=== PATIENT | female | born 1960 | race Caucasian/White ===

== ENCOUNTER 2018-07-05 20:56 | Inpatient (IN) ==
[2018-07-05] MEDS ORDERED: Sodium Chlor 0.9% Inj 500 ML IV.SIG ONE (22:18)
--- NOTE | 2018-07-05 22:18 | ED ---
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 Then she was referred to Dr. Stephen however she has insurance issues and cannot see Dr. Stephen. She comes in tonight return of heavy vaginal bleeding. She was worried she will become anemic again. And patient is here complaining of lethargy weakness heavy vaginal bleeding. She has a history of fibroids. She has heavy bleeding off and on throughout her life. She has never become perimenopausal yet she is 58 and again recently diagnosed with a liposarcoma and a lesion in the lung was biopsied that seemed like it was metastatic from the uterine cancer mild epigastric and suprapubic tenderness with heavy vaginal bleed as her main complaint getting worse over the last day Related Data Home Medications Medication Instructions Recorded Confirmed iron fum,ps-FA-vit B,C#18-Lact 1 cap PO DAILY 07/05/18 07/05/18 [Fusion Plus] Previous Rx's Medication Instructions Recorded metoprolol succinate 12.5 mg PO DAILY #30 tab 07/08/18 ondansetron [Zofran ODT] 4 mg PO QID PRN #20 tab 07/08/18 potassium chloride 20 meq PO DAILY #3 cap 07/08/18 tramadol [Ultram] 50 mg PO Q4-6H PRN #20 tab 07/08/18 Allergies Allergy/AdvReac Type Severity Reaction Status Date / Time No Known Allergies Allergy Verified 07/05/18 21:21 Review of Systems ROS: all other systems reviewed are negative [facility] Medical History Medical History Fibroids (Acute) Endometriosis (Acute) Asthma (Acute) 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) Surgical History Surgical History H/O dilation and curettage (Acute) Hx of tonsillectomy (Acute) Family History Family History Father Accident Mother Diabetes Hypertension Social History Social History Substance History: No History of Abuse Second Hand Smoke Exposure: No Smoking Status: Former smoker How Often Do You Have a Drink Containing Alcohol: Never Recent Travel in [place] within the Last 8 Weeks: No Recent Out of Country Travel within the Last 8 Weeks: No Immunization History Tetanus Immunization: Unsure Hx Influenza Vaccine This Season: No Exam Narrative Exam Narrative: GENERAL: slightly pale SKIN: Warm and dry. HEAD: Atraumatic. Normocephalic. EYES: Pupils equal and round. No scleral icterus. No injection or drainage. ENT: No nasal bleeding or discharge. Mucous membranes pink and moist. NECK: Trachea midline. No JVD. CARDIOVASCULAR: Regular rate and rhythm. RESPIRATORY: No accessory muscle use. Clear to auscultation. Breath sounds equal bilaterally. GASTROINTESTINAL: Abdomen soft, non-tender, nondistended. Hepatic and splenic margins not palpable. MUSCULOSKELETAL: Extremities without clubbing, cyanosis, or edema. No obvious deformities. NEUROLOGICAL: Awake and alert. No obvious cranial nerve deficits. Motor grossly within normal limits. Five out of 5 muscle strength in the arms and legs. Normal speech. PSYCHIATRIC: Appropriate mood and affect; insight and judgment normal. Course Initial Documented Vital Signs Temperature 98.3 F 07/05/18 21:21 Pulse Rate 110 H 07/05/18 21:21 Respiratory Rate 18 07/05/18 21:21 Blood Pressure 170/93 H 07/05/18 21:21 Pulse Oximetry 98 07/05/18 21:21 Last Documented Vital Signs Temperature 98.1 F 07/08/18 08:44 Pulse Rate 81 07/08/18 11:17 Respiratory Rate 18 07/08/18 08:44 Blood Pressure 163/72 H 07/08/18 11:17 Pulse Oximetry 95 07/08/18 08:44 Medical Decision Making [facility] Narrative Medical decision making narrative: Patient is admitted for further evaluation I do an ultrasound in the ER to have some documentation in our system as they do not have any films with them from prior treatment patient will be seen by a oncologist and gynecologic at this time she is stable admitted for further evaluation possible hysterectomy she has no way to follow-up as an outpatient with a long will be followed by regular oncology due to the fact that she has a possible metastases of this liposarcoma to her lung Medical Screen Exam Complete: Yes Emergency Medical Condition: Yes Differential Diagnosis Differential Diagnosis: Differential diagnosis includes worsening of her leiomyosarcoma heavy vaginal bleeding versus fibroid bleeding versus external uterine bleeding versus worsening of her present illness Lab Data Result diagrams: 07/08/18 05:04 07/08/18 05:04 Lab Results 07/05/18 07/05/18 07/05/18 Range/Units 22:57 22:57 23:35 WBC 7.4 (4.0-11.0) th/mm3 RBC 4.10 (4.00-5.30) mil/mm3 Hgb 10.3 L (11.6-15.3) gm/dL Hct 32.9 L (35.0-46.0) % MCV 80.3 (80.0-100.0) fL MCH 25.2 L (27.0-34.0) pg MCHC 31.3 L (32.0-36.0) % RDW 17.5 H (11.6-17.2) % Plt Count 413 (150-450) th/mm3 MPV 9.1 (7.0-11.0) fL Neut % (Auto) 75.2 H (16.0-70.0) % Lymph % (Auto) 15.3 (9.0-44.0) % [place] % (Auto) 6.1 (0.0-8.0) % Eos % (Auto) 2.3 (0.0-4.0) % Baso % (Auto) 1.1 (0.0-2.0) % Neut # (Auto) 5.5 (1.8-7.7) th/mm3 Lymph # (Auto) 1.1 (1.0-4.8) th/mm3 [place] # (Auto) 0.5 (0.0-0.9) th/mm3 Eos # (Auto) 0.2 (0.0-0.4) th/mm3 Baso # (Auto) 0.1 (0.0-0.2) th/mm3 WBC Differential . Differential Comment Auto diff final PT (9.8-11.6) sec INR Ratio Sodium 141 (136-145) meq/L Potassium 3.8 (3.5-5.1) meq/L Chloride 106 (98-107) meq/L Carbon Dioxide 27.0 (21.0-32.0) meq/L Anion Gap 8 (5-15) meq/L BUN 9 (7-18) mg/dL Creatinine 0.71 (0.50-1.00) mg/dL Estimated GFR 85 L (>89) mL/min Random Glucose 111 H (74-106) mg/dL Hemoglobin A1c (4.3-6.0) % Calcium 9.4 (8.5-10.1) mg/dL Phosphorus (2.5-4.9) mg/dL Magnesium (1.5-2.5) mg/dL Total Bilirubin 0.3 (0.2-1.0) mg/dL AST 23 (15-37) U/L ALT 32 (10-53) U/L Alkaline Phosphatase 107 (45-117) U/L Total Protein 7.2 (6.4-8.2) g/dL Albumin 3.9 (3.4-5.0) g/dL TSH (0.358-3.740) uIU/mL Free T4 (0.76-1.46) ng/dL Urine Color Yellow (Yellw/Straw) Urine Clarity Hazy H (Clear) Urine pH 5.0 (5.0-8.5) Ur Specific [place] 1.008 (1.002-1.035) Urine Protein Negative (Neg-Trace) mg/dL Urine Glucose (UA) Negative (Negative) mg/dL Urine Ketones Negative (Negative) mg/dL Urine Occult Blood Large H (Negative) Urine Nitrate Negative (Negative) Urine Bilirubin Negative (Negative) Urine Urobilinogen Less than 2 (Less than 2) mg/dL Ur Leukocyte Esterase Negative (Negative) Urine RBC (0-3) /hpf Urine WBC 4 (0-5) /hpf Urine Mucus Few H (Occasional) /lpf Ur Microscopic Review Not Reportable Blood Type Blood Type Recheck Antibody Screen MTS Gel Crossmatch Bld Prod Order Comment 07/05/18 07/05/18 07/06/18 Range/Units 23:40 23:40 04:15 WBC 5.5 (4.0-11.0) th/mm3 RBC 3.35 L (4.00-5.30) mil/mm3 Hgb 8.5 L (11.6-15.3) gm/dL Hct 27.1 L (35.0-46.0) % MCV 81.0 (80.0-100.0) fL MCH 25.2 L (27.0-34.0) pg MCHC 31.2 L (32.0-36.0) % RDW 17.4 H (11.6-17.2) % Plt Count 361 (150-450) th/mm3 MPV 8.8 (7.0-11.0) fL Neut % (Auto) 75.1 H (16.0-70.0) % Lymph % (Auto) 17.3 (9.0-44.0) % [place] % (Auto) 5.7 (0.0-8.0) % Eos % (Auto) 0.9 (0.0-4.0) % Baso % (Auto) 1.0 (0.0-2.0) % Neut # (Auto) 4.2 (1.8-7.7) th/mm3 Lymph # (Auto) 1.0 (1.0-4.8) th/mm3 [place] # (Auto) 0.3 (0.0-0.9) th/mm3 Eos # (Auto) 0.0 (0.0-0.4) th/mm3 Baso # (Auto) 0.1 (0.0-0.2) th/mm3 WBC Differential . Differential Comment Auto diff final PT 12.5 H (9.8-11.6) sec INR 1.2 Ratio Sodium (136-145) meq/L Potassium (3.5-5.1) meq/L Chloride (98-107) meq/L Carbon Dioxide (21.0-32.0) meq/L Anion Gap (5-15) meq/L BUN (7-18) mg/dL Creatinine (0.50-1.00) mg/dL Estimated GFR (>89) mL/min Random Glucose (74-106) mg/dL Hemoglobin A1c (4.3-6.0) % Calcium (8.5-10.1) mg/dL Phosphorus (2.5-4.9) mg/dL Magnesium (1.5-2.5) mg/dL Total Bilirubin (0.2-1.0) mg/dL AST (15-37) U/L ALT (10-53) U/L Alkaline Phosphatase (45-117) U/L Total Protein (6.4-8.2) g/dL Albumin (3.4-5.0) g/dL TSH (0.358-3.740) uIU/mL Free T4 (0.76-1.46) ng/dL Urine Color (Yellw/Straw) Urine Clarity (Clear) Urine pH (5.0-8.5) Ur Specific [place] (1.002-1.035) Urine Protein (Neg-Trace) mg/dL Urine Glucose (UA) (Negative) mg/dL Urine Ketones (Negative) mg/dL Urine Occult Blood (Negative) Urine Nitrate (Negative) Urine Bilirubin (Negative) Urine Urobilinogen (Less than 2) mg/dL Ur Leukocyte Esterase (Negative) Urine RBC (0-3) /hpf Urine WBC (0-5) /hpf Urine Mucus (Occasional) /lpf Ur Microscopic Review Blood Type A Negative Blood Type Recheck Required Antibody Screen Negative MTS Gel Crossmatch Bld Prod Order Comment 07/06/18 07/06/18 07/06/18 Range/Units 04:15 04:15 04:15 WBC (4.0-11.0) th/mm3 RBC (4.00-5.30) mil/mm3 Hgb (11.6-15.3) gm/dL Hct (35.0-46.0) % MCV (80.0-100.0) fL MCH (27.0-34.0) pg MCHC (32.0-36.0) % RDW (11.6-17.2) % Plt Count (150-450) th/mm3 MPV (7.0-11.0) fL Neut % (Auto) (16.0-70.0) % Lymph % (Auto) (9.0-44.0) % [place] % (Auto) (0.0-8.0) % Eos % (Auto) (0.0-4.0) % Baso % (Auto) (0.0-2.0) % Neut # (Auto) (1.8-7.7) th/mm3 Lymph # (Auto) (1.0-4.8) th/mm3 [place] # (Auto) (0.0-0.9) th/mm3 Eos # (Auto) (0.0-0.4) th/mm3 Baso # (Auto) (0.0-0.2) th/mm3 WBC Differential Differential Comment PT (9.8-11.6) sec INR Ratio Sodium 143 (136-145) meq/L Potassium 3.8 (3.5-5.1) meq/L Chloride 109 H (98-107) meq/L Carbon Dioxide 25.8 (21.0-32.0) meq/L Anion Gap 8 (5-15) meq/L BUN 8 (7-18) mg/dL Creatinine 0.67 (0.50-1.00) mg/dL Estimated GFR Greater than 89 (>89) mL/min Random Glucose 116 H (74-106) mg/dL Hemoglobin A1c 4.4 (4.3-6.0) % Calcium 8.4 L D (8.5-10.1) mg/dL Phosphorus (2.5-4.9) mg/dL Magnesium (1.5-2.5) mg/dL Total Bilirubin 0.2 (0.2-1.0) mg/dL AST 18 (15-37) U/L ALT 28 (10-53) U/L Alkaline Phosphatase 92 (45-117) U/L Total Protein 6.1 L D (6.4-8.2) g/dL Albumin 3.3 L D (3.4-5.0) g/dL TSH (0.358-3.740) uIU/mL Free T4 1.08 (0.76-1.46) ng/dL Urine Color (Yellw/Straw) Urine Clarity (Clear) Urine pH (5.0-8.5) Ur Specific [place] (1.002-1.035) Urine Protein (Neg-Trace) mg/dL Urine Glucose (UA) (Negative) mg/dL Urine Ketones (Negative) mg/dL Urine Occult Blood (Negative) Urine Nitrate (Negative) Urine Bilirubin (Negative) Urine Urobilinogen (Less than 2) mg/dL Ur Leukocyte Esterase (Negative) Urine RBC (0-3) /hpf Urine WBC (0-5) /hpf Urine Mucus (Occasional) /lpf Ur Microscopic Review Blood Type Blood Type Recheck Antibody Screen MTS Gel Crossmatch Bld Prod Order Comment 07/06/18 07/06/18 07/07/18 Range/Units 04:15 23:11 05:06 WBC 5.5 (4.0-11.0) th/mm3 RBC 3.24 L (4.00-5.30) mil/mm3 Hgb 8.6 L 8.1 L (11.6-15.3) gm/dL Hct 26.2 L (35.0-46.0) % MCV 81.1 (80.0-100.0) fL MCH 25.0 L (27.0-34.0) pg MCHC 30.9 L (32.0-36.0) % RDW 17.7 H (11.6-17.2) % Plt Count 353 (150-450) th/mm3 MPV 8.2 (7.0-11.0) fL Neut % (Auto) 76.2 H (16.0-70.0) % Lymph % (Auto) 17.3 (9.0-44.0) % [place] % (Auto) 5.6 (0.0-8.0) % Eos % (Auto) 0.2 (0.0-4.0) % Baso % (Auto) 0.7 (0.0-2.0) % Neut # (Auto) 4.2 (1.8-7.7) th/mm3 Lymph # (Auto) 1.0 (1.0-4.8) th/mm3 [place] # (Auto) 0.3 (0.0-0.9) th/mm3 Eos # (Auto) 0.0 (0.0-0.4) th/mm3 Baso # (Auto) 0.0 (0.0-0.2) th/mm3 WBC Differential . Differential Comment Auto diff final PT (9.8-11.6) sec INR Ratio Sodium (136-145) meq/L Potassium (3.5-5.1) meq/L Chloride (98-107) meq/L Carbon Dioxide (21.0-32.0) meq/L Anion Gap (5-15) meq/L BUN (7-18) mg/dL Creatinine (0.50-1.00) mg/dL Estimated GFR (>89) mL/min Random Glucose (74-106) mg/dL Hemoglobin A1c (4.3-6.0) % Calcium (8.5-10.1) mg/dL Phosphorus (2.5-4.9) mg/dL Magnesium (1.5-2.5) mg/dL Total Bilirubin (0.2-1.0) mg/dL AST (15-37) U/L ALT (10-53) U/L Alkaline Phosphatase (45-117) U/L Total Protein (6.4-8.2) g/dL Albumin (3.4-5.0) g/dL TSH 1.270 (0.358-3.740) uIU/mL Free T4 (0.76-1.46) ng/dL Urine Color (Yellw/Straw) Urine Clarity (Clear) Urine pH (5.0-8.5) Ur Specific [place] (1.002-1.035) Urine Protein (Neg-Trace) mg/dL Urine Glucose (UA) (Negative) mg/dL Urine Ketones (Negative) mg/dL Urine Occult Blood (Negative) Urine Nitrate (Negative) Urine Bilirubin (Negative) Urine Urobilinogen (Less than 2) mg/dL Ur Leukocyte Esterase (Negative) Urine RBC (0-3) /hpf Urine WBC (0-5) /hpf Urine Mucus (Occasional) /lpf Ur Microscopic Review Blood Type Blood Type Recheck Antibody Screen MTS Gel Crossmatch Bld Prod Order Comment 07/07/18 07/07/18 07/07/18 Range/Units 05:06 05:06 15:06 WBC (4.0-11.0) th/mm3 RBC (4.00-5.30) mil/mm3 Hgb (11.6-15.3) gm/dL Hct (35.0-46.0) % MCV (80.0-100.0) fL MCH (27.0-34.0) pg MCHC (32.0-36.0) % RDW (11.6-17.2) % Plt Count (150-450) th/mm3 MPV (7.0-11.0) fL Neut % (Auto) (16.0-70.0) % Lymph % (Auto) (9.0-44.0) % [place] % (Auto) (0.0-8.0) % Eos % (Auto) (0.0-4.0) % Baso % (Auto) (0.0-2.0) % Neut # (Auto) (1.8-7.7) th/mm3 Lymph # (Auto) (1.0-4.8) th/mm3 [place] # (Auto) (0.0-0.9) th/mm3 Eos # (Auto) (0.0-0.4) th/mm3 Baso # (Auto) (0.0-0.2) th/mm3 WBC Differential Differential Comment PT 12.7 H (9.8-11.6) sec INR 1.3 Ratio Sodium 144 (136-145) meq/L Potassium 3.6 (3.5-5.1) meq/L Chloride 109 H (98-107) meq/L Carbon Dioxide 25.9 (21.0-32.0) meq/L Anion Gap 9 (5-15) meq/L BUN 4 L (7-18) mg/dL Creatinine 0.52 (0.50-1.00) mg/dL Estimated GFR Greater than 89 (>89) mL/min Random Glucose 100 (74-106) mg/dL Hemoglobin A1c (4.3-6.0) % Calcium 8.7 (8.5-10.1) mg/dL Phosphorus 4.4 (2.5-4.9) mg/dL Magnesium 2.1 (1.5-2.5) mg/dL Total Bilirubin 0.3 (0.2-1.0) mg/dL AST 17 (15-37) U/L ALT 23 (10-53) U/L Alkaline Phosphatase 89 (45-117) U/L Total Protein 6.4 (6.4-8.2) g/dL Albumin 3.4 (3.4-5.0) g/dL TSH (0.358-3.740) uIU/mL Free T4 (0.76-1.46) ng/dL Urine Color (Yellw/Straw) Urine Clarity (Clear) Urine pH (5.0-8.5) Ur Specific [place] (1.002-1.035) Urine Protein (Neg-Trace) mg/dL Urine Glucose (UA) (Negative) mg/dL Urine Ketones (Negative) mg/dL Urine Occult Blood (Negative) Urine Nitrate (Negative) Urine Bilirubin (Negative) Urine Urobilinogen (Less than 2) mg/dL Ur Leukocyte Esterase (Negative) Urine RBC (0-3) /hpf Urine WBC (0-5) /hpf Urine Mucus (Occasional) /lpf Ur Microscopic Review Blood Type Blood Type Recheck Antibody Screen MTS Gel Crossmatch See Detail Bld Prod Order Comment 07/08/18 07/08/18 07/08/18 Range/Units 05:04 05:04 05:04 WBC 8.9 D (4.0-11.0) th/mm3 RBC 3.86 L (4.00-5.30) mil/mm3 Hgb 10.4 L D (11.6-15.3) gm/dL Hct 32.0 L (35.0-46.0) % MCV 82.7 (80.0-100.0) fL MCH 26.9 L (27.0-34.0) pg MCHC 32.5 (32.0-36.0) % RDW 17.2 (11.6-17.2) % Plt Count 299 (150-450) th/mm3 MPV 8.9 (7.0-11.0) fL Neut % (Auto) 86.8 H (16.0-70.0) % Lymph % (Auto) 5.6 L (9.0-44.0) % [place] % (Auto) 6.8 (0.0-8.0) % Eos % (Auto) 0.4 (0.0-4.0) % Baso % (Auto) 0.4 (0.0-2.0) % Neut # (Auto) 7.8 H (1.8-7.7) th/mm3 Lymph # (Auto) 0.5 L (1.0-4.8) th/mm3 [place] # (Auto) 0.6 (0.0-0.9) th/mm3 Eos # (Auto) 0.0 (0.0-0.4) th/mm3 Baso # (Auto) 0.0 (0.0-0.2) th/mm3 WBC Differential . Differential Comment Auto diff final PT 13.6 H (9.8-11.6) sec INR 1.3 Ratio Sodium 142 (136-145) meq/L Potassium 3.1 L (3.5-5.1) meq/L Chloride 103 (98-107) meq/L Carbon Dioxide 27.2 (21.0-32.0) meq/L Anion Gap 12 (5-15) meq/L BUN 5 L (7-18) mg/dL Creatinine 0.59 (0.50-1.00) mg/dL Estimated GFR Greater than 89 (>89) mL/min Random Glucose 86 (74-106) mg/dL Hemoglobin A1c (4.3-6.0) % Calcium 8.2 L (8.5-10.1) mg/dL Phosphorus 3.7 (2.5-4.9) mg/dL Magnesium 2.0 (1.5-2.5) mg/dL Total Bilirubin 0.9 (0.2-1.0) mg/dL AST 29 (15-37) U/L ALT 20 (10-53) U/L Alkaline Phosphatase 82 (45-117) U/L Total Protein 6.3 L (6.4-8.2) g/dL Albumin 3.2 L (3.4-5.0) g/dL TSH (0.358-3.740) uIU/mL Free T4 (0.76-1.46) ng/dL Urine Color (Yellw/Straw) Urine Clarity (Clear) Urine pH (5.0-8.5) Ur Specific [place] (1.002-1.035) Urine Protein (Neg-Trace) mg/dL Urine Glucose (UA) (Negative) mg/dL Urine Ketones (Negative) mg/dL Urine Occult Blood (Negative) Urine Nitrate (Negative) Urine Bilirubin (Negative) Urine Urobilinogen (Less than 2) mg/dL Ur Leukocyte Esterase (Negative) Urine RBC (0-3) /hpf Urine WBC (0-5) /hpf Urine Mucus (Occasional) /lpf Ur Microscopic Review Blood Type Blood Type Recheck Antibody Screen MTS Gel Crossmatch Bld Prod Order Comment Imaging Data Radiologist's impression: Pelvis Ultrasound 07/05/18 22:12 CONCLUSION: 1. Large heterogeneous mass of the uterus as described with nonvisualization of the endometrial stripe. Fibroid and endometrial mass or both in the differential. 2. Neither ovary clearly visualized but no evidence of an adnexal mass. There is no free fluid. Patient refused transvaginal exam. Embolization 07/06/18 00:00 CONCLUSION: 1. Angiogram confirms a large hypervascular uterine mass with excellent angiographic result following particle embolization of the uterine arteries. Abdomen/Pelvis CT 07/07/18 00:00 CONCLUSION: 1. Markedly enlarged and heterogeneous uterus, with multiple discrete hyperdense regions, as detailed above. Findings are concerning for gynecologic malignancy. 2. Small region of low density in the left lateral pelvis, just lateral to the psoas muscle, which may represent focal layering fluid. 3. Mild nodularity of the left adrenal gland. 4. There is evidence of metastatic disease to the lungs. Please refer to separate report from today's chest CT for further details. Chest CT 07/07/18 00:00 CONCLUSION: 1. Multiple bilateral pulmonary nodules consistent with metastatic disease. Discharge Plan Discharge Disposition Patient Disposition: Discharge Home Discharge Condition Condition: Good Discharge Order Discharge Orders: Discharge Order (Routine); Ordered 07/08/18 Ordered By: Demetris Renteria Physicians Team ED Provider: Ramakrishna Santos ED Midlevel Provider: Catherine Garcia Primary Care Provider: Cyrus Kay Attending Provider: Demetris Renteria Other Providers: Toño Mesa Kelly Status ED Status: Left Department Discharge Information Discharge Date/Time: 07/06/18 01:03
[2018-07-05 23:18] LABS: Baso # (Auto) 0.1 th/mm3 (0.0-0.2); Baso % (Auto) 1.1 % (0.0-2.0); Eos # (Auto) 0.2 th/mm3 (0.0-0.4); Eos % (Auto) 2.3 % (0.0-4.0); Hematocrit 32.9 % (35.0-46.0); Hemoglobin 10.3 gm/dL (11.6-15.3); Lymph # (Auto) 1.1 th/mm3 (1.0-4.8); Lymph % (Auto) 15.3 % (9.0-44.0); Mean Corpuscular HGB Conc 31.3 % (32.0-36.0); Mean Corpuscular Hemoglobin 25.2 pg (27.0-34.0); Mean Corpuscular Volume 80.3 fL (80.0-100.0); Mean Platelet Volume 9.1 fL (7.0-11.0); Mono # (Auto) 0.5 th/mm3 (0.0-0.9); Mono % (Auto) 6.1 % (0.0-8.0); Neut # (Auto) 5.5 th/mm3 (1.8-7.7); Neut % (Auto) 75.2 % (16.0-70.0); Platelet Count 413 th/mm3 (150-450); Red Cell Distribution Width 17.5 % (11.6-17.2); White Blood Count 7.4 th/mm3 (4.0-11.0)
[2018-07-05 23:32] LABS: Alanine Aminotransferase 32 U/L (10-53); Albumin 3.9 g/dL (3.4-5.0); Anion Gap 8 meq/L (5-15); Aspartate Aminotransferase 23 U/L (15-37); Blood Urea Nitrogen 9 mg/dL (7-18); Calcium 9.4 mg/dL (8.5-10.1); Chloride 106 meq/L (98-107); Glomerular Filtration Rate 85 mL/min (>89); Glucose,Random 111 mg/dL (74-106); Potassium 3.8 meq/L (3.5-5.1); Sodium 141 meq/L (136-145)
[2018-07-05 23:35] LABS: Alkaline Phosphatase 107 U/L (45-117); Total Protein 7.2 g/dL (6.4-8.2)
[2018-07-05] MEDS ORDERED: Bisacodyl 10 MG Supp RECTAL PRN (23:36)
--- NOTE | 2018-07-06 00:03 | US ---
EXAM DATE: 07/05/2018 11:39 PM EDT AGE/SEX: 58 years / Female INDICATIONS: Vaginal bleeding. CLINICAL DATA: This is the patient's initial encounter. Patient reports that signs and symptoms have been present for 7 - 11 months and indicates a pain score of 2/10. MEDICAL/SURGICAL HISTORY: . Carcinoma in situ of cervix uteri. Endometriosis. Asthma. Anemia . . Dilation and curettage 06/13/2018. Tonsillectomy. COMPARISON: No prior exams available for comparison. MEASUREMENTS: Uterus:__20.1 x 12.3 x 13.5 cm Endometrial Stripe:__N/A Right Ovary:__ n/a Not visualized. Left Ovary:__ n/a Not visualized. FINDINGS: Uterus: 6.3 x 7.2 x 7.9 cm heterogeneous mass seen in the fundus, most likely a intramural/submucosa l fibroid but there is obscuration of the uterine cavity/endometrial stripe and an endometrial mass i s not excludable. Endometrial Stripe: Not visualized Right Ovary: Not visualized. Left Ovary: Not visualized. Fluid: No free fluid. Other: None. CONCLUSION: 1. Large heterogeneous mass of the uterus as described with nonvisualization of the endometrial stri pe. Fibroid and endometrial mass or both in the differential. 2. Neither ovary clearly visualized but no evidence of an adnexal mass. There is no free fluid. Serenity ent refused transvaginal exam. Electronically signed by: Anival Boo MD 07/06/2018 12:02 AM EDT
[2018-07-06 00:04] LABS: Bilirubin,Urine Negative (Negative); Color,Urine Yellow (Yellw/Straw); Glucose,Urine (UA) Negative (Negative); Leukocyte Esterase,Urine Negative (Negative); Mucus,Urine Few /lpf (Occasional); Nitrite,Urine Negative (Negative); Specific Gravity,Urine 1.008 (1.002-1.035)
[2018-07-06 00:05] LABS: Clarity,Urine Hazy (Clear)
[2018-07-06 00:06] LABS: INR 1.2 Ratio; Prothrombin Time 12.5 sec (9.8-11.6)
[2018-07-06] MEDS: Sod Chloride 0.9% Inj 1,000 ML IV.CONT SCH ×2 (00:33→09:58)
--- NOTE | 2018-07-06 01:30 | P.HPIM ---
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 Patient presents due to heavy vaginal bleeding which started earlier on with multiple clots. She says she is very scared of having anemia leg before. She reports chronic suprapubic cramping which is unchanged. She denies any fevers, chills, chest pain, shortness breath, nausea, vomiting. She does report uncertain amount of weight loss over the past 2 months. 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) - Surgical History Surgical History: Surgical History (Last Reviewed 07/05/18 @ 22:15 by Ramakrishna Santos) H/O dilation and curettage (Acute) Hx of tonsillectomy (Acute) - Family History Family History: Family History (Last Updated 07/06/18 @ 01:24 by Chele Bueno MD) Father Accident Mother Diabetes Hypertension - Tobacco History Second Hand Smoke Exposure: No Tobacco Use In Past 30 Days: No Smoking Status: Former smoker - Alcohol History How Often Do You Have a Drink Containing Alcohol: Never - Substance Use History Substance History: No History of Abuse - Immunization History Tetanus Immunization: Unsure Hx Influenza Vaccine This Season: No Medications and Allergies Active Medications: Active Medications Al Hydroxide/Mg Hydroxide (Milk Of Magnesia Liq) 30 ml PO Q12H PRN PRN Reason: Mild Constipation Bisacodyl (Dulcolax Supp) 10 mg RECTAL DAILY PRN PRN Reason: SEVERE CONSITIPATION Sodium Chloride (Ns Inj) 1,000 mls @ 100 mls/hr IV.CONT .Q10H CHRISTIE Last Admin: 07/06/18 00:33 Dose: 100 mls/hr Lactulose (Lactulose Liq) 30 ml PO DAILY PRN PRN Reason: SEVERE CONSITIPATION Sennosides (Senokot) 17.2 mg PO Q12H PRN PRN Reason: Moderate Constipation Allergies Allergy/AdvReac Type Severity Reaction Status Date / Time No Known Allergies Allergy Verified 07/05/18 21:21 Home Medications Medication Instructions Recorded Confirmed Type iron fum,ps-FA-vit B,C#18-Lact 1 cap PO DAILY 07/05/18 07/05/18 History [Fusion Plus] Exam Vital signs: Vital Signs 07/05/18 21:21 07/05/18 21:27 07/06/18 00:32 Temperature 98.3 F Pulse Rate 110 H 100 H 104 H Respiratory Rate 18 16 17 Blood Pressure 170/93 H 153/81 H 140/83 Pulse Oximetry 98 99 Intake & Output 07/05/18 07/05/18 07/06/18 06:59 18:59 06:59 Weight 77.111 kg Narrative: GENERAL: Patient sitting up in bed. She is alert and oriented 4. SKIN: Warm and dry. HEAD: Atraumatic. Normocephalic. EYES: Pupils equal and round. No scleral icterus. No injection or drainage. ENT: No nasal bleeding or discharge. Mucous membranes pink and moist. NECK: Trachea midline. No JVD. CARDIOVASCULAR: Regular rate and rhythm. RESPIRATORY: No accessory muscle use. Clear to auscultation. Breath sounds equal bilaterally. GASTROINTESTINAL: Abdomen soft, non-tender, nondistended. Hepatic and splenic margins not palpable. MUSCULOSKELETAL: Extremities without clubbing, cyanosis, or edema. No obvious deformities. NEUROLOGICAL: Awake and alert. No obvious cranial nerve deficits. Motor grossly within normal limits. Five out of 5 muscle strength in the arms and legs. Normal speech. PSYCHIATRIC: Appropriate mood and affect; insight and judgment normal. Results - Labs CBC & Chem 7: 07/05/18 22:57 07/05/18 22:57 Labs: Short CBC 07/05/18 Range/Units 22:57 WBC 7.4 (4.0-11.0) th/mm3 Hgb 10.3 L (11.6-15.3) gm/dL Hct 32.9 L (35.0-46.0) % Plt Count 413 (150-450) th/mm3 BMP 07/05/18 22:57 Sodium 141 Potassium 3.8 Chloride 106 Carbon Dioxide 27.0 BUN 9 Creatinine 0.71 Calcium 9.4 Liver Function 07/05/18 Range/Units 22:57 Total Bilirubin 0.3 (0.2-1.0) mg/dL AST 23 (15-37) U/L ALT 32 (10-53) U/L Alkaline Phosphatase 107 (45-117) U/L Albumin 3.9 (3.4-5.0) g/dL Urine 07/05/18 Range/Units 23:35 Urine Color Yellow (Yellw/Straw) Urine Clarity Hazy H (Clear) Urine pH 5.0 (5.0-8.5) Ur Specific [place] 1.008 (1.002-1.035) Urine Protein Negative (Neg-Trace) mg/dL Urine Glucose (UA) Negative (Negative) mg/dL - Imaging Impressions Pelvis Ultrasound 07/05/18 22:12 CONCLUSION: 1. Large heterogeneous mass of the uterus as described with nonvisualization of the endometrial stripe. Fibroid and endometrial mass or both in the differential. 2. Neither ovary clearly visualized but no evidence of an adnexal mass. There is no free fluid. Patient refused transvaginal exam. Caprini VTE Risk Assessment Caprini VTE Risk Assessment: Moderate/High Risk (score >= 2) VTE Pharmacological Exception Reason: Hemorrhage Caprini Risk Assessment Model: Point Value = 1 Point Value = 2 Point Value = 3 Point Value = 5 Age 41-60 Minor surgery BMI > 25 kg/m2 Swollen legs Varicose veins or History of unexplained or recurrent spontaneous Oral contraceptives or hormone replacement Sepsis (< 1 month) Serious lung disease, including pneumonia (< 1 month) Abnormal pulmonary function Acute myocardial infarction Congestive heart failure (< 1 month) History of inflammatory bowel disease Medical patient at bed rest Age 61-74 Arthroscopic surgery Major open surgery (> 45 min) Laparoscopic surgery (> 45 min) Malignancy Confined to bed (> 72 hours) Immobilizing plaster cast Central venous access Age >= 75 History of VTE Family history of VTE Factor V Leiden Prothrombin [id number] Lupus anticoagulant Anticardiolipin antibodies Elevated serum homocysteine Heparin-induced thrombocytopenia Other congenital or acquired thrombophilia Stroke (< 1 month) Elective arthroplasty Hip, pelvis, or leg fracture Acute spinal cord injury (< 1 month) Prophylaxis Regimen: Total Risk Factor Score Risk Level Prophylaxis Regimen 0-1 Low Early ambulation 2 Moderate Order ONE of the following: *Sequential Compression Device (SCD) *Heparin 5000 units SQ BID 3-4 Higher Order ONE of the following medications: *Heparin 5000 units SQ TID *Enoxaparin/Lovenox 40 mg SQ daily (WT < 150 kg, CrCl > 30 mL/min) *Enoxaparin/Lovenox 30 mg SQ daily (WT < 150 kg, CrCl > 10-29 mL/min) *Enoxaparin/Lovenox 30 mg SQ BID (WT < 150 kg, CrCl > 30 mL/min) AND/OR *Sequential Compression Device (SCD) 5 or more Highest Order ONE of the following medications: *Heparin 5000 units SQ TID (Preferred with Epidurals) *Enoxaparin/Lovenox 40 mg SQ daily (WT < 150 kg, CrCl > 30 mL/min) *Enoxaparin/Lovenox 30 mg SQ daily (WT < 150 kg, CrCl > 10-29 mL/min) *Enoxaparin/Lovenox 30 mg SQ BID (WT < 150 kg, CrCl > 30 mL/min) AND *Sequential Compression Device (SCD) Assessment and Plan - Plan //Acute vaginal bleeding //Anemia -Hemoglobin 10 Consult gynecology/oncology. Trend hemoglobin. 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 Recent biopsy on 06/22 at [facility]. Will consult gynecology/oncology. Discussed Condition With: Patient, nurse, ED physician, daughter at bedside H&P: Quality - VTE Deep Vein Thrombosis/Pulmonary Embolism Present on Admission: No
[2018-07-06 05:18] LABS: Baso # (Auto) 0.1 th/mm3 (0.0-0.2); Eos % (Auto) 0.9 % (0.0-4.0); Hematocrit 27.1 % (35.0-46.0); Hemoglobin 8.5 gm/dL (11.6-15.3); Lymph % (Auto) 17.3 % (9.0-44.0); Mean Corpuscular HGB Conc 31.2 % (32.0-36.0); Mean Corpuscular Hemoglobin 25.2 pg (27.0-34.0); Mean Platelet Volume 8.8 fL (7.0-11.0); Mono # (Auto) 0.3 th/mm3 (0.0-0.9); Mono % (Auto) 5.7 % (0.0-8.0); Neut # (Auto) 4.2 th/mm3 (1.8-7.7); Neut % (Auto) 75.1 % (16.0-70.0); Platelet Count 361 th/mm3 (150-450); Red Blood Count 3.35 mil/mm3 (4.00-5.30); Red Cell Distribution Width 17.4 % (11.6-17.2); White Blood Count 5.5 th/mm3 (4.0-11.0)
[2018-07-06 05:43] LABS: Alanine Aminotransferase 28 U/L (10-53); Albumin 3.3 g/dL (3.4-5.0); Alkaline Phosphatase 92 U/L (45-117); Anion Gap 8 meq/L (5-15); Aspartate Aminotransferase 18 U/L (15-37); Blood Urea Nitrogen 8 mg/dL (7-18); Calcium 8.4 mg/dL (8.5-10.1); Carbon Dioxide 25.8 meq/L (21.0-32.0); Chloride 109 meq/L (98-107); Glomerular Filtration Rate Greater Than 89 mL/min (>89); Glucose,Random 116 mg/dL (74-106); Potassium 3.8 meq/L (3.5-5.1); Sodium 143 meq/L (136-145); Total Protein 6.1 g/dL (6.4-8.2)
[2018-07-06] MEDS ORDERED: Diatrizoate Meglum/Diatrizoate Sod Liq 9 ML UDC PO ONE (10:30)
--- NOTE | 2018-07-06 11:39 | P.PNIM ---
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 Patient presents due to heavy vaginal bleeding which started earlier on with multiple clots. She says she is very scared of having anemia leg before. She reports chronic suprapubic cramping which is unchanged. She denies any fevers, chills, chest pain, shortness breath, nausea, vomiting. She does report uncertain amount of weight loss over the past 2 months. We will consult interventional radiology as well as radiation oncology as well as Dr. Stephen of [facility] oncology We will monitor labs We will make full admission Discussed with case management and RN and patient I believe is scheduled to go for procedure with interventional radiology later today and possibly Dr. Stephen Physical Exam Vital signs: Vital Signs 07/05/18 21:21 07/05/18 21:27 07/06/18 00:00 Temperature 98.3 F 98.0 F Pulse Rate 110 H 100 H 75 Respiratory Rate 18 16 21 Blood Pressure 170/93 H 153/81 H 131/77 Pulse Oximetry 98 99 100 07/06/18 00:32 07/06/18 04:00 07/06/18 08:00 Temperature 98.3 F 98.2 F Pulse Rate 104 H 86 86 Respiratory Rate 17 19 16 Blood Pressure 140/83 127/65 156/73 H Pulse Oximetry 99 99 Intake & Output 07/05/18 07/06/18 07/06/18 18:59 06:59 18:59 Intake Total 500 / 500 1000 / 1000 Balance 500 / 500 1000 / 1000 Weight 77.111 kg Intake: IV 500 / 500 1000 / 1000 NS Inj 1,000 ML @ 100 mls/hr IV 1000 / 1000 .CONT .Q10H CHRISTIE Rx#:[id number] NS Inj 500 ML @ Wide Open IV. 500 / 500 SIG BOLUS ONE Rx#:[id number] Other: Date of Last Bowel Movement 07/05/18 Weight On Admission 77.111 kg Narrative: GENERAL: Patient sitting up in bed. She is alert and oriented 4. SKIN: Warm and dry. HEAD: Atraumatic. Normocephalic. EYES: Pupils equal and round. No scleral icterus. No injection or drainage. EOMI ENT: No nasal bleeding or discharge. Mucous membranes pink and moist. Tongue is midline NECK: Trachea midline. No JVD. Supple CARDIOVASCULAR: Regular rate and rhythm. S1-S2 no S3 or S4 RESPIRATORY: No accessory muscle use. Clear to auscultation. Breath sounds equal bilaterally. GASTROINTESTINAL: Abdomen soft, non-tender, nondistended. Hepatic and splenic margins not palpable. MUSCULOSKELETAL: Extremities without clubbing, cyanosis, or edema. No obvious deformities. NEUROLOGICAL: Awake and alert. No obvious cranial nerve deficits. Motor grossly within normal limits. Five out of 5 muscle strength in the arms and legs. Normal speech. PSYCHIATRIC: Appropriate mood and affect; insight and judgment normal. Results - Labs CBC & Chem 7: 07/06/18 04:15 07/06/18 04:15 Laboratory Results - last 24 hr 07/05/18 07/05/18 07/05/18 22:57 22:57 23:35 WBC 7.4 RBC 4.10 Hgb 10.3 L Hct 32.9 L MCV 80.3 MCH 25.2 L MCHC 31.3 L RDW 17.5 H Plt Count 413 MPV 9.1 Neut % (Auto) 75.2 H Lymph % (Auto) 15.3 Stewart % (Auto) 6.1 Eos % (Auto) 2.3 Baso % (Auto) 1.1 Neut # (Auto) 5.5 Lymph # (Auto) 1.1 Stewart # (Auto) 0.5 Eos # (Auto) 0.2 Baso # (Auto) 0.1 WBC Differential . Differential Comment Auto diff final PT INR Sodium 141 Potassium 3.8 Chloride 106 Carbon Dioxide 27.0 Anion Gap 8 BUN 9 Creatinine 0.71 Estimated GFR 85 L Random Glucose 111 H Calcium 9.4 Total Bilirubin 0.3 AST 23 ALT 32 Alkaline Phosphatase 107 Total Protein 7.2 Albumin 3.9 Urine Color Yellow Urine Clarity Hazy H Urine pH 5.0 Ur Specific [place] 1.008 Urine Protein Negative Urine Glucose (UA) Negative Urine Ketones Negative Urine Occult Blood Large H Urine Nitrate Negative Urine Bilirubin Negative Urine Urobilinogen Less than 2 Ur Leukocyte Esterase Negative Urine RBC Urine WBC 4 Urine Mucus Few H Ur Microscopic Review Not Reportable Blood Type Blood Type Recheck Antibody Screen 07/05/18 07/05/18 07/06/18 23:40 23:40 04:15 WBC 5.5 RBC 3.35 L Hgb 8.5 L Hct 27.1 L MCV 81.0 MCH 25.2 L MCHC 31.2 L RDW 17.4 H Plt Count 361 MPV 8.8 Neut % (Auto) 75.1 H Lymph % (Auto) 17.3 Stewart % (Auto) 5.7 Eos % (Auto) 0.9 Baso % (Auto) 1.0 Neut # (Auto) 4.2 Lymph # (Auto) 1.0 Stewart # (Auto) 0.3 Eos # (Auto) 0.0 Baso # (Auto) 0.1 WBC Differential . Differential Comment Auto diff final PT 12.5 H INR 1.2 Sodium Potassium Chloride Carbon Dioxide Anion Gap BUN Creatinine Estimated GFR Random Glucose Calcium Total Bilirubin AST ALT Alkaline Phosphatase Total Protein Albumin Urine Color Urine Clarity Urine pH Ur Specific [place] Urine Protein Urine Glucose (UA) Urine Ketones Urine Occult Blood Urine Nitrate Urine Bilirubin Urine Urobilinogen Ur Leukocyte Esterase Urine RBC Urine WBC Urine Mucus Ur Microscopic Review Blood Type A Negative Blood Type Recheck Required Antibody Screen Negative 07/06/18 04:15 WBC RBC Hgb Hct MCV MCH MCHC RDW Plt Count MPV Neut % (Auto) Lymph % (Auto) Stewart % (Auto) Eos % (Auto) Baso % (Auto) Neut # (Auto) Lymph # (Auto) Stewart # (Auto) Eos # (Auto) Baso # (Auto) WBC Differential Differential Comment PT INR Sodium 143 Potassium 3.8 Chloride 109 H Carbon Dioxide 25.8 Anion Gap 8 BUN 8 Creatinine 0.67 Estimated GFR Greater than 89 Random Glucose 116 H Calcium 8.4 L D Total Bilirubin 0.2 AST 18 ALT 28 Alkaline Phosphatase 92 Total Protein 6.1 L D Albumin 3.3 L D Urine Color Urine Clarity Urine pH Ur Specific [place] Urine Protein Urine Glucose (UA) Urine Ketones Urine Occult Blood Urine Nitrate Urine Bilirubin Urine Urobilinogen Ur Leukocyte Esterase Urine RBC Urine WBC Urine Mucus Ur Microscopic Review Blood Type Blood Type Recheck Antibody Screen - Imaging Impressions Pelvis Ultrasound 07/05/18 22:12 CONCLUSION: 1. Large heterogeneous mass of the uterus as described with nonvisualization of the endometrial stripe. Fibroid and endometrial mass or both in the differential. 2. Neither ovary clearly visualized but no evidence of an adnexal mass. There is no free fluid. Patient refused transvaginal exam. Assessment and Plan - Plan Acute vaginal bleeding Anemia -Hemoglobin 10 Consult gynecology/oncology. Trend hemoglobin. 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 Recent biopsy on 06/22 at [facility]. Will consult gynecology/oncology. Consult Dr. Stephen of [facility] oncology We will make a full admission DVT prophylaxis with SCDs and GARRETT hose GI prophylaxis with Pepcid Code Status: Full code Discussed Condition With: Discussed with RN and patient and case management Discharge Planning: After clearance by [facility] oncology and interventional radiology and radiation oncology
--- NOTE | 2018-07-06 11:56 | P.CON ---
History of Present Illness Service: Radiation oncology Consult date: 07/06/18 Reason for Consult: Vaginal bleeding Primary Care Provider: Cyrus Kay MD Chief Complaint: Vaginal bleeding, leiomyosarcoma History of Present Illness: 58-year-old white female which states that she started having spotting and bleeding since October 2017. Through time he has gotten worse. She says that it really got worse about 4-6 weeks ago. As a result of this that she went to [facility] where apparently she had a D&C although she is not sure. 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 On workup she was noted to have a lung lesion which was biopsied and this was positive for leiomyosarcoma. She does not recall having lesions where she thinks she was told she had 4-5 lesions. I have no records from [facility] at this point. Daughter had a pathology report from the lung biopsy which was positive for leiomyosarcoma. Due to the fact that the patient has no insurance she was at discharge. She apparently was also evaluated by medical oncology while for hospital, but was not given recommendations regard to therapy. Patient came into the hospital due to the fact she that she has more bleeding. A consult has been placed for evaluation regarding possible palliative radiotherapy for bleeding. I have discussed this case with Dr. Stephen. Review of Systems Constitutional: Reports fatigue, Reports malaise, Reports weakness Eyes: Denies blind spots, Denies blurry vision, Denies bulging eyes, Denies change in vision, Denies double vision, Denies discharge, Denies dry eyes, Denies floaters, Denies irritation, Denies itchy eyes, Denies loss of vision, Denies pain, Denies requires corrective lenses, Denies sensitivity to light, Denies other Ears, Nose, Mouth, and Throat: Denies abnormal hearing, Denies bleeding gums, Denies bad breath, Denies change in voice, Denies dental pain, Denies difficulty swallowing, Denies dizziness, Denies dry mouth, Denies ear discharge , Denies ear pain, Denies facial pain, Denies headache(s), Denies hearing loss, Denies hoarseness, Denies lip swelling, Denies nosebleed, Denies mouth lesions, Denies mouth pain, Denies nasal congestion, Denies nasal discharge, Denies nasal obstruction, Denies nasal trauma, Denies neck lump, Denies neck pain, Denies nose pain, Denies pain with swallowing, Denies poor balance, Denies post nasal drip, Denies ringing in the ears, Denies sinus pain, Denies sinus pressure , Denies sore throat, Denies throat swelling, Denies tongue swelling, Denies other Cardiovascular: Denies chest pain, Denies chest pain at rest, Denies chest pain with activity, Denies excessive sweating, Denies fainting, Denies fast heart rate, Denies foot swelling, Denies generalized swelling, Denies irregular heart rhythm, Denies leg pain with activity, Denies leg sores, Denies leg swelling, Denies lightheadedness, Denies radiating jaw, neck or arm pain, Denies rapid, pounding, or irregular heartbeat, Denies shortness of breath, Denies shortness of breath with activity, Denies shortness of breath when lying down, Denies shortness of breath causing sudden awakening, Denies slow heart rate, Denies other Respiratory: Denies change in phlegm color, Denies chest congestion, Denies cough, Denies coughing up blood, Denies excessive phlegm production, Denies pain on inspiration, Denies pain with cough, Denies shortness of breath, Denies shortness of breath with activity, Denies snoring, Denies stridor, Denies wheezing, Denies other Gastrointestinal: Denies abdominal pain, Denies belching, Denies black, tarry stools, Denies bloating, Denies bright, red blood in stools, Denies change in bowel habits, Denies constant urge to pass stool, Denies change in stools, Denies coffee ground vomit, Denies constipation, Denies cramping, Denies difficulty swallowing, Denies excessive passing of gas, Denies feeling full early, Denies heartburn, Denies incontinent of stools, Denies loose stools, Denies nausea, Denies pain with swallowing, Denies vomiting, Denies vomiting blood, Denies other Genitourinary: Reports abnormal periods, Reports abnormal vaginal bleeding Musculoskeletal: Denies abnormal walking, Denies back pain, Denies body aches, Denies decreased muscle mass, Denies deformity, Denies joint pain, Denies joint swelling, Denies limited joint movement, Denies loss of height, Denies muscle cramps, Denies muscle weakness, Denies neck pain, Denies numbness, Denies radiating pain into limb, Denies stiffness, Denies tingling, Denies other Skin/Breast: Denies acne, Denies bleeding lesions, Denies boil, Denies breast swelling, Denies breast skin changes, Denies breast pain, Denies breast lump, Denies change in breast shape, Denies change in hair, Denies change in skin color, Denies changing lesions, Denies dry skin, Denies excessive hair growth, Denies hair loss, Denies itching, Denies lesions, Denies nail changes, Denies new lesions, Denies nipple discharge, Denies non-healing lesions, Denies redness , Denies sensitivity to light, Denies rash, Denies skin pain, Denies skin ulcer , Denies sores, Denies stretch galvan, Denies unusual bruising, Denies wounds, Denies yellowing of the skin, Denies other Neurologic: Denies abnormal hearing, Denies abnormal movements, Denies abnormal speech, Denies abnormal walking, Denies behavioral changes, Denies burning sensations, Denies confusion, Denies dizziness, Denies fainting, Denies frequent falls, Denies headache(s), Denies lack of coordination, Denies localized weakness, Denies loss of vision, Denies memory loss, Denies numbness, Denies other visual disturbances, Denies radiating pain, Denies restless legs, Denies convulsions, Denies seizure-like activity, Denies sensory deficit, Denies tingling, Denies tingling/numbness/burning sensations, Denies tremor(s), Denies unsteadiness, Denies weakness, Denies other Psychiatric: Denies abnormal sleep pattern, Denies anxiety, Denies behavioral changes, Denies change in appetite, Denies change in sex drive, Denies confusion , Denies depression, Denies difficulty concentrating, Denies hearing things others do not hear, Denies hopelessness, Denies irritability, Denies lack of enjoyment, Denies memory loss, Denies mood swings, Denies panic attacks, Denies paranoia, Denies seeing things others do not see, Denies sensing things others do not sense, Denies tactile hallucinations, Denies thoughts of hurting/killing others, Denies thoughts of hurting/killing yourself, Denies other Endocrine: Denies cold intolerance, Denies excessive sweating, Denies flushing, Denies heat intolerance, Denies increased hunger, Denies increased thirst, Denies increased urination, Denies rapid, pounding, or irregular heartbeat, Denies other Hematologic/Lymphatic: Denies easy bleeding, Denies easy bruising, Denies enlarged lymph nodes, Denies other Allergic/Immunologic: Denies GI upset with certain foods, Denies hives, Denies itchy eyes, Denies lip swelling, Denies seasonal runny nose, Denies throat swelling, Denies tongue swelling, Denies wheezing, Denies other PMFSH - History History Provided By: Patient - Medical History Medical History: Medical History (Last Reviewed 07/06/18 @ 07:59 by Manuel Carias) Fibroids (Acute) Endometriosis (Acute) Asthma (Acute) 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) - Surgical History Surgical History: Surgical History (Last Reviewed 07/06/18 @ 07:59 by Manuel Carias) H/O dilation and curettage (Acute) Hx of tonsillectomy (Acute) - Family History Family History: Family History (Last Updated 07/06/18 @ 01:24 by Chele Bueno MD) Father Accident Mother Diabetes Hypertension - Tobacco History Second Hand Smoke Exposure: No Tobacco Use In Past 30 Days: No Smoking Status: Former smoker - Alcohol History How Often Do You Have a Drink Containing Alcohol: Never - Substance Use History Substance History: No History of Abuse - Travel History Recent Travel in the [place] Within the Last 8 Weeks: No Recent Travel Out of the Country Within the Last 8 Weeks: No - Immunization History Tetanus Immunization: Unsure Hx Influenza Vaccine This Season: No Medications and Allergies Active Medications: Active Medications Al Hydroxide/Mg Hydroxide (Milk Of Magnesia Liq) 30 ml PO Q12H PRN PRN Reason: Mild Constipation Bisacodyl (Dulcolax Supp) 10 mg RECTAL DAILY PRN PRN Reason: SEVERE CONSITIPATION Sodium Chloride (Ns Inj) 1,000 mls @ 100 mls/hr IV.CONT .Q10H CHRISTIE Last Admin: 07/06/18 09:58 Dose: 100 mls/hr Lactulose (Lactulose Liq) 30 ml PO DAILY PRN PRN Reason: SEVERE CONSITIPATION Multivitamins/Minerals (Theragran-M) 1 tab PO DAILY [facility] Sennosides (Senokot) 17.2 mg PO Q12H PRN PRN Reason: Moderate Constipation Allergies Allergy/AdvReac Type Severity Reaction Status Date / Time No Known Allergies Allergy Verified 07/05/18 21:21 Home Medications Medication Instructions Recorded Confirmed Type iron fum,ps-FA-vit B,C#18-Lact 1 cap PO DAILY 07/05/18 07/05/18 History [Fusion Plus] Physical Exam Vital signs: Vital Signs 07/05/18 21:21 07/05/18 21:27 07/06/18 00:00 Temperature 98.3 F 98.0 F Pulse Rate 110 H 100 H 75 Respiratory Rate 18 16 21 Blood Pressure 170/93 H 153/81 H 131/77 Pulse Oximetry 98 99 100 07/06/18 00:32 07/06/18 04:00 07/06/18 08:00 Temperature 98.3 F 98.2 F Pulse Rate 104 H 86 86 Respiratory Rate 17 19 16 Blood Pressure 140/83 127/65 156/73 H Pulse Oximetry 99 99 Intake & Output 07/05/18 07/06/18 07/06/18 18:59 06:59 18:59 Intake Total 500 / 500 1000 / 1000 Balance 500 / 500 1000 / 1000 Weight 77.111 kg Intake: IV 500 / 500 1000 / 1000 NS Inj 1,000 ML @ 100 mls/hr IV 1000 / 1000 .CONT .Q10H CHRISTIE Rx#:[id number] NS Inj 500 ML @ Wide Open IV. 500 / 500 SIG BOLUS ONE Rx#:[id number] Other: Date of Last Bowel Movement 07/05/18 Weight On Admission 77.111 kg - Constitutional no acute distress, average body habitus, cooperative - Routine HEENT Exam Head: Present: normocephalic, atraumatic Eye: Present: EOMI ENT: Present: nares patent, external ear normal - Routine Neck Exam Present: supple - Routine Respiratory Exam Comments: Auscultation of the lungs were clear to auscultation with appropriate ventilatory and inspiratory effort. - Routine Cardiovascular Exam Comments: Heart was regular in rate and rhythm with no murmurs. - Routine Abdominal Exam Present: soft Comments: No hepatosplenomegaly noted. No periumbilical lymph nodes. - Routine Extremities Exam Comments: No lower extremity edema detected. - Routine Skin Exam Present: intact - Routine Neurological Exam Present: alert, oriented X3, moving all extremities, normal tone, hearing grossly intact, normal speech - Detailed Neurological Exam: Coma Scale Eye Opening: Spontaneous Verbal Response: Oriented Motor Response: Obey commands Maureen Coma Scale Total: 15 - Routine Psychiatric Exam Present: normal affect, normal thought process, cooperative, good insight, good judgment Assessment and Plan - Plan Assessment: 58-year-old white female with the diagnosis of leiomyosarcoma of the endometrium pending confirmation. Patient with vaginal bleeding, being evaluated for palliative or therapy treatment options. Patient also with metastatic disease to the lungs biopsy-proven. Plan: Had extensive discussion with the patient and her daughter in regards to her condition. I have discussed this case with Dr. Stephen today. I advised the patient and the daughter that she may need palliative radiotherapy to the pelvic area for bleeding control. I advised that at this point I do not have a true diagnosis of the pelvic area since I do not have the reports from [facility]. In the event that the patient continues to bleed heavily she will need radiation therapy and I may need to do this without a proven diagnosis in the pelvic area. Understands this and accepts the treatment if needed. She has biopsy-proven metastatic disease to the lung. Patient advised that I would like to have a possible workup before start the radiation therapy, she realizes that this may not be possible and that I may have to start the radiation therapy, sooner than expected. I have placed an order for a CT of the chest abdomen and pelvis. Dr. Stephen to evaluate the patient as well. Once all information is obtained and will proceed accordingly. She was advised of the merits of the radiation therapy, as well as the side effects and complications. Pelvic side effects to include but limited to weakness and fatigue, decreased blood counts, necrosis of the skin, erythema of the skin, loss of pelvic hair which will be permanent, bone damage and fracture, pain of the treated area, swelling of the lower extremities, bowel and bladder damage, bowel and bladder bleeding, bowel and bladder incontinence, hemorrhoidal flareup , vaginal dryness, vaginal strictures which may require the use of dilators, nausea and vomiting, diarrhea. We also discussed fistula formation between the vagina and the bladder and between the vagina and the rectum may need surgical repair and removal of the bladder or rectum. After thorough discussion patient agreed to move forward with simulation and treatment planning. We will plan to start radiation therapy as soon as we gather all of the above information or we may have to start the radiation therapy emergently if need be. She was advised if I could be of any further assistance or to please let me know otherwise we will proceed as above. I have requested documentation from [facility]. Discussed Condition With: Dr. Stephen
[2018-07-06] MEDS ORDERED: fentaNYL Citrate Inj 250 MCG/5 ML Ampul ONE (15:12)
[2018-07-06 17:42] LABS: Hemoglobin A1c 4.4 % (4.3-6.0)
[2018-07-06] MEDS: Ketorolac Inj 30 MG/ML (IVP) Vial IV.PUSH SCH (18:07)
[2018-07-06] MEDS ORDERED: HYDROmorphone PCA Inj 6 MG/30 ML PCA.VIAL PCA PRN ×4 (18:36→19:06)
[2018-07-06] MEDS ORDERED: Naloxone Inj 0.4 MG/ML Vial IV.PUSH PRN (18:36)
--- NOTE | 2018-07-06 20:20 | MB ---
cc: Thuy Stephen MD, Alvaro R MD Duncan,Tonny Gutierrez MD, DO DATE: 07/06/2018 REQUESTING CONSULT: Chele Bueno MD REASON FOR CONSULTATION: 1. Large abdominal pelvic mass. 2. Recent diagnostic evaluation suggesting uterine sarcoma with pulmonary metastases. REASON FOR ADMISSION: Heavy vaginal bleeding, abdominal pain, failure to thrive. HISTORY OF PRESENT ILLNESS: This is a 58-year-old female who presented to the emergency room complaining of worsening abdominal pain, heavy vaginal bleeding with a recent history that she was admitted to [facility], was there for a number of days, by report had a hemoglobin as low as 4, required multiple transfusions and supportive care. She underwent diagnostic evaluation including D and C and imaging that suggested pulmonary metastasis and had pulmonary biopsy. Records have been obtained and reviewed, which showed the cervix and endocervix from the D and C to show chronic inflammation and benign tissue, but tissue obtained from the endometrium showed spindle cell neoplasm suggestive of sarcoma. Furthermore, biopsy of pulmonary nodule was consistent with metastatic sarcoma. At some point, she was deemed stabilized for discharge. The plan of care from that point forward was uncertain. She reports that she has had some troubles as she currently has no medical insurance, but she presented to [facility] emergency room where she was seen and evaluated and now admitted with the aforementioned findings and aforementioned history. She is most concerned about the bleeding that she finds troublesome, but also it frightens her with respect to problems related to her health. She reports that she has had this heavy bleeding and a sense of an enlarged uterus or pelvic mass for many, many months, dating back she estimates at least until 10/2017, possibly longer. When asked again about seeking care, she states that absence of insurance had been her perceived hindrance and reason why she has not sought care until very recently. She is seen now in consultation from a [facility] onc[facility] standpoint for further evaluation and recommendations regarding these findings. PAST MEDICAL HISTORY: She has a history of asthma. She has a history of known uterine fibroids and endometriosis. Prior history of cervical carcinoma in situ. Denies any cardiac or pulmonary disease. PAST SURGICAL HISTORY: Includes a recent dilation and curettage. She has had a history of tonsillectomy at a young age. FAMILY HISTORY: Diabetes and hypertension. REVIEW OF SYSTEMS: As per history of present illness. MEDICATIONS: As outlined in the chart nothing additional to add to that. OBJECTIVE: H and H on admission 10.3 and 32.9 but with hydration now 8.5 and 27.1, white count 5.5, platelets 361. Coagulation INR 1.2. Electrolytes: Potassium 3.8. Renal function, BUN and creatinine 8 and 0.67. Transaminases are normal. Serum albumin low at 3.3. Pelvic ultrasound shows a very large heterogeneous uterus measuring at least 20 cm with a width of at least 13 cm. Additionally, there is an 8 cm heterogeneous mass near the fundus. The ovaries are not well visualized. In speaking with Dr. Toño Mesa of radiation oncology, he did some treatment planning and CT scan that confirms this markedly enlarged heterogeneous uterus. Additional imaging is forthcoming. PHYSICAL EXAMINATION: VITAL SIGNS: Afebrile, pulse 86-104, respirations 16-21, blood pressure 127-156 over 65-83, O2 saturations 99%. GENERAL: She is alert and oriented x3, no acute distress. A pleasant affect, a little bit anxious. HEENT: Pupils equal, round and reactive to light. Extraocular movements intact. Mucous membranes slightly pale, dry. LUNGS: Clear. HEART: Regular rate and rhythm. No back tenderness or CVA tenderness. ABDOMEN: Slightly distended with an obvious mass effect, a firm mass that extends several centimeters above the umbilicus and extends from sidewall to sidewall with no mobility, but she is uncomfortable in exam, but is nonacute. She tolerates deep palpation in all 4 quadrants. PELVIC: With the assistance of a nurse in interventional radiology and with the consent of Michel Manriquez we were able to do a preliminary pelvic exam prior to her moving forward with the scheduled uterine artery embolization procedure. There was no overt inguinal adenopathy. External genitalia without obvious mass or lesion. There was a moderate amount of blood on her padding and undergarment. Whereas the surface of the cervix feels smooth and normal, just approximately 1 cm above the palpable cervix and/or lower uterine segment balloons out and extends to the pelvic sidewalls bilaterally. It is difficult to tell with certainty if this is just marked tumor mass following the contours of the uterus versus infiltration into the parametria and potentially to the pelvic sidewalls. It is certainly suspicious for tumor infiltrating into the parametria to the pelvic sidewalls. EXTREMITIES: Nontender. No palpable cords. Time was spent in discussion with her reviewing the findings in her case to date. I explained the reason for [facility] onc[facility] consultation. I had been reviewing her information and had reviewed her findings. She had already met our office nurse (Merari Banegas) as I was in surgery earlier, but we were contemplating doing an exam under anesthesia to get a better understanding of the extent of the problem. However, I have also been in contact with Dr. Toño Mesa in radiation oncology who graciously saw her straightaway in consultation, did some treatment planning studies to initiate urgent radiation in an effort to try to control her bleeding and reduce the tumor burden. I have also been in contact with interventional radiology, who graciously agreed to see her and will be moving forward with bilateral uterine artery embolization and any other arterial embolization that seems to be contributing to the supply of this large tumor in an effort to help suppress her bleeding. She understands the rationale for these steps and to move forward with interventional radiology. The exam under anesthesia was deferred, but I am grateful that she allowed the exam today and feedback of the findings included in our discussion. Whether or not she would ever be a candidate for hysterectomy is uncertain. I think a preoperative dose of radiation to try to control bleeding and reduce tumor burden is reasonable, and we must keep in consideration that she already has biopsy-proven systemic disease including lung metastases such that intervention will be palliative. We want to ensure that whatever steps taken will be palliative. Whether or not she would consider systemic treatment is uncertain, but right now her main concern and main issue is to try to suppress the bleeding and steps are being taken to address that issue. Discussion ensued. Questions were asked and answered. She was grateful for the information and for the time spent in discussion with her. ASSESSMENT: 1. Markedly enlarged uterus with biopsies consistent with uterine sarcoma. 2. Pulmonary biopsy showing confirmation of metastatic sarcoma. 3. Symptomatic transfusion dependent anemia with associated abdominal and pelvic discomfort. 4. Extensive discussion. I appreciate excellent medical care. PLAN: 1. Move forward with bilateral uterine artery embolization via interventional radiology as well as embolization of any other significant active blood supply. 2. Move forward with urgent palliative radiation under the direction of Dr. Toño Mesa. 3. Continue supportive care, IV fluids, symptomatic management. 4. As discussed above, whether or not she will be a candidate for surgery depends on further findings, response to treatment and her wishes combined with the extent of disease and trying to balance morbidity versus benefit. Thank you for the consultation. I will follow along in her care. MD GANESH Armstrong/serge , 04:43 PM , 05:02 PM
[2018-07-06] MEDS: HYDROmorphone PCA Inj 6 MG/30 ML PCA.VIAL PCA PRN ×3 (20:23→20:35)
[2018-07-06] MEDS ORDERED: HYDROmorphone PF Inj 2 MG/ML Vial IV.PUSH ONE (21:55)
[2018-07-06] MEDS: Famotidine PF Inj 20 MG/2 ML Vial IV.PUSH SCH (22:10)
[2018-07-07] MEDS: Ketorolac Inj 30 MG/ML (IVP) Vial IV.PUSH SCH ×3 (00:26→12:32)
[2018-07-07] MEDS: Sod Chloride 0.9% Inj 1,000 ML IV.CONT SCH ×2 (04:04→05:36)
[2018-07-07 05:32] LABS: Baso % (Auto) 0.7 % (0.0-2.0); Eos % (Auto) 0.2 % (0.0-4.0); Hematocrit 26.2 % (35.0-46.0); Hemoglobin 8.1 gm/dL (11.6-15.3); Lymph % (Auto) 17.3 % (9.0-44.0); Mean Corpuscular Volume 81.1 fL (80.0-100.0); Mean Platelet Volume 8.2 fL (7.0-11.0); Mono # (Auto) 0.3 th/mm3 (0.0-0.9); Mono % (Auto) 5.6 % (0.0-8.0); Neut # (Auto) 4.2 th/mm3 (1.8-7.7); Neut % (Auto) 76.2 % (16.0-70.0); Platelet Count 353 th/mm3 (150-450); Red Blood Count 3.24 mil/mm3 (4.00-5.30); Red Cell Distribution Width 17.7 % (11.6-17.2); White Blood Count 5.5 th/mm3 (4.0-11.0)
[2018-07-07 05:38] LABS: INR 1.3 Ratio; Prothrombin Time 12.7 sec (9.8-11.6)
[2018-07-07 05:52] LABS: Aspartate Aminotransferase 17 U/L (15-37); Calcium 8.7 mg/dL (8.5-10.1); Chloride 109 meq/L (98-107); Glomerular Filtration Rate Greater Than 89 mL/min (>89); Potassium 3.6 meq/L (3.5-5.1); Sodium 144 meq/L (136-145)
[2018-07-07 05:58] LABS: Mean Corpuscular HGB Conc 30.9 % (32.0-36.0)
[2018-07-07 06:02] LABS: Alanine Aminotransferase 23 U/L (10-53); Albumin 3.4 g/dL (3.4-5.0); Alkaline Phosphatase 89 U/L (45-117); Anion Gap 9 meq/L (5-15); Blood Urea Nitrogen 4 mg/dL (7-18); Carbon Dioxide 25.9 meq/L (21.0-32.0); Glucose,Random 100 mg/dL (74-106); Magnesium 2.1 mg/dL (1.5-2.5); Phosphorus 4.4 mg/dL (2.5-4.9); Total Protein 6.4 g/dL (6.4-8.2)
--- NOTE | 2018-07-07 06:58 | CT ---
EXAM DATE: 07/07/2018 6:54 AM EDT AGE/SEX: 58 years / Female INDICATIONS: Metastatic sarcoma. CLINICAL DATA: This is the patient's initial encounter. Patient reports that signs and symptoms have been present for 1 day and indicates a pain score of 0/10. MEDICAL/SURGICAL HISTORY: Carcinoma, cervical. Carcinoma, lung. None. RADIATION DOSE: 5.37 CTDI (mGy) ; Combined studies COMPARISON: No prior exams available for comparison. TECHNIQUE: Multiple contiguous axial images were obtained through the chest during bolus infusion of 92 ml Omnipaque 350 (iohexol) nonionic water-soluble contrast as a cumulative dose for multiple exa ms. Images were obtained in suspended respiration using multiple row detector helical technique. U sing automated exposure control and adjustment of the mA and/or kV according to patient size, radiati on dose was kept as low as reasonably achievable to obtain optimal diagnostic quality images. DICOM format image data is available electronically for review and comparison. FINDINGS: Lungs: Multiple bilateral pulmonary nodules. There is a lower lobe predominance. These range in size from a a few millimeters up to 2.2 cm. The largest nodules within the right base. No infiltrate.. Mediastinum: There is good visualization of the great vessels of the middle mediastinum. No evidenc e of mediastinal or hilar adenopathy/mass. Pleurae: No evidence of focal thickening or pleural effusion. Axillae: Unremarkable. Bony Structures: Unremarkable. Miscellaneous: The examination was extended to include the upper abdomen, and both adrenal glands ar e normal in size and configuration. CONCLUSION: 1. Multiple bilateral pulmonary nodules consistent with metastatic disease. Electronically signed by: Dimitri Barrios MD 07/07/2018 6:57 AM EDT
--- NOTE | 2018-07-07 07:20 | CT ---
EXAM DATE: 07/07/2018 6:54 AM EDT AGE/SEX: 58 years / Female INDICATIONS: Metastatic sarcoma, vaginal bleeding. CLINICAL DATA: This is the patient's initial encounter. Patient reports that signs and symptoms have been present for 1 day and indicates a pain score of 0/10. MEDICAL/SURGICAL HISTORY: Carcinoma, cervical. Carcinoma, lung. None. ORAL CONTRAST: Prescribed oral contrast ingested. RADIATION DOSE: 5.37 CTDI (mGy) ; Combined studies COMPARISON: [facility] [place] CHEST W CONTRAST, 07/07/2018. [place], CT SIMULATION, 07/06/2018. . TECHNIQUE: Multiple contiguous axial images were obtained through the abdomen and pelvis following b olus infusion of 92 ml Omnipaque 350 (iohexol) nonionic water-soluble contrast as a cumulative dose for multiple exams. Prescribed oral contrast ingested. Using automated exposure control and adjustm ent of the mA and/or kV according to patient size, radiation dose was kept as low as reasonably achie vable to obtain optimal diagnostic quality images. DICOM format image data is available electronical ly for review and comparison. FINDINGS: Lower Lungs: Please refer to separate report from today's chest CT for details of the thorax. Liver: The liver has a homogeneous density without space-occupying lesion. There is no dilation of th e biliary tree. Hyperdense material layering within the gallbladder, likely vicarious excretion of co ntrast. Spleen: Homogeneous density without enlargement. Splenule. Pancreas: Unremarkable. Kidneys: Normal in size and shape. No evidence of mass or hydronephrosis. Adrenal Glands: Mild nodular thickening of the left adrenal gland. Right adrenal gland is unremarka ble. Aorta: The aorta and proximal iliac vessels are grossly unremarkable without aneurysmal dilation. Bowel/Mesentery: Colonic diverticulosis without evidence of acute diverticulitis. Normal appendix. N o bowel obstruction. Abdominal Wall: Intact. Retroperitoneum: No obvious adenopathy in the retrocrural, para-aortic, or deep pelvic regions. Smal l region of low density in the left lateral pelvis, just lateral to the psoas muscle, which may repre sent focal layering fluid. Bladder: Hyperdense material within the partially distended bladder, consistent with excreted contra st. Reproductive Organs: The uterus is markedly enlarged, measuring approximately 15 x 12 x 21 cm, and i s quite heterogeneous in density with multiple discrete hyperdensities throughout. For example, there is an 8 cm rounded region of hyperdensity in the left fundal aspect of the uterus which appears to c ontain foci of gas. Inguinal: No inguinal adenopathy. Bony Structures: Unremarkable. CONCLUSION: 1. Markedly enlarged and heterogeneous uterus, with multiple discrete hyperdense regions, as detaile d above. Findings are concerning for gynecologic malignancy. 2. Small region of low density in the left lateral pelvis, just lateral to the psoas muscle, which m ay represent focal layering fluid. 3. Mild nodularity of the left adrenal gland. 4. There is evidence of metastatic disease to the lungs. Please refer to separate report from today' s chest CT for further details. Electronically signed by: Linda Geogre MD 07/07/2018 7:18 AM EDT
--- NOTE | 2018-07-07 09:19 | IR ---
EXAM DATE: 07/06/2018 7:28 PM EDT AGE/SEX: 58 years / Female INDICATIONS: Patient presents with history of Endometriosis in need of bilateral Uterine artery embo lization. CLINICAL DATA: This is the patient's initial encounter. Patient reports that signs and symptoms have been present for 1 day and indicates a pain score of 0/10. MEDICAL/SURGICAL HISTORY: . Fibroids, Endometriosis, Asthma, Carcinoma in situ of Cervix Uteri, Tonsillectomy. Dilation and curettage. COMPARISON: No prior exams available for comparison. FLUORO TIME (min): 10.1 IMAGE SERIES: 9 ACCESS SITE: Left radial artery SEDATION TIME (min): 40 CONTRAST (cc): 150 Visipaque (iodixanol) MEDICATION(S): 2.5 mg midazolam (Versed) IV 125 mcg fentanyl (Sublimaze) IV 200 mcg Nitroglycerine IA 2 mg Verapamil IA DEVICE(S): Bilateral uterine artery PVA 355-500 Microns . . PROCEDURE : 1. Ultrasound-guided puncture of the left radial artery 2. Conscious sedation with continuous EKG and Oximetry monitoring. 3. Pelvic angiogram 4. Selective catheter placement in the right internal iliac artery with selective angiography 5. Selective catheter placement in the right uterine artery with selective angiography 6. Embolization of the right uterine artery with PVA particles 7. Selective catheter placement in the left internal iliac artery with selective angiography 8. Selective catheter placement in the left uterine artery with selective angiography 9. Embolization of the left uterine artery with PVA particles The risks, benefits and alternatives to the procedure were explained and verbal and written consent w as obtained. The site was prepped in sterile fashion. Full sterile technique was used, including ca p, mask, sterile gloves and gown and a large sterile sheet. Hand hygiene and 2% chlorhexidine and/or betadine/alcohol prep was utilized per protocol for cutaneous antisepsis. Sterile gel and sterile p robe cover were utilized for ultrasound guidance. The skin and subcutaneous tissues were infiltrated with local anesthetic solution. Patient passed about both test prior to the procedure. Left radial artery was accessed with a micropu ncture needle under direct ultrasound guidance and subsequently a slim 5 Lao sheath was placed. 5 Lao Najera catheter was then advanced into the distal bowel aorta and pelvic angiography was perfor med. Catheter was then advanced into the right internal iliac artery and angiography was performed. C atheter was subsequently advanced into the right uterine artery and angiography was performed confirm ing position. Right uterine artery was subsequently embolized with PVA particles to near stasis. Cath eter was then repositioned into the left internal iliac artery and angiography was performed. Cathete r was then advanced into the left uterine artery and angiography performed confirming position. Left uterine artery was subsequent MRIs with PVA particles to near stasis. Final pelvic angiogram demonstr ated no additional significant uterine arterial supply or abnormal enhancement. Wires and catheters w ere then removed. Radial compression device was then applied the left radial artery puncture site. The patient tolerated the procedure well and there were no complications. Conscious sedation was performed with the prescribed dosages and duration as above in the presence of an independent trained radiology nurse to assist in the monitoring of the patient. EKG and oximetry remained stable throughout the procedure. FINDINGS: Very large uterine mass with significant increased vascularity. Excellent angiographic result followi ng particle embolization of the uterine artery. CONCLUSION: 1. Angiogram confirms a large hypervascular uterine mass with excellent angiographic result followin g particle embolization of the uterine arteries. Electronically signed by: Armando Manning MD 07/07/2018 9:18 AM EDT
[2018-07-07] MEDS: Multivitamin/Minerals Therapeutic Tablet PO SCH (10:00)
[2018-07-07] MEDS: Famotidine PF Inj 20 MG/2 ML Vial IV.PUSH SCH ×2 (10:02→21:35)
[2018-07-07] MEDS ORDERED: oxyCODONE/Acetaminophen 10/325 Tablet PO PRN (11:50)
[2018-07-07] MEDS ORDERED: Naloxone Inj 0.4 MG/ML Vial IV.PUSH PRN (11:50)
[2018-07-07 11:53] VITALS: RESP 18
--- NOTE | 2018-07-07 11:55 | P.PNIM ---
Subjective Interval history: 58-year-old female who started with vaginal bleeding in October 2017, subsequently developed severe anemia with hemoglobin down 4.0 earlier this month transfused at 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 Patient presents due to heavy vaginal bleeding which started earlier on with multiple clots. She says she is very scared of having anemia leg before. She reports chronic suprapubic cramping which is unchanged. She denies any fevers, chills, chest pain, shortness breath, nausea, vomiting. She does report uncertain amount of weight loss over the past 2 months. We will consult interventional radiology as well as radiation oncology as well as Dr. Stephen of [facility] We will monitor labs We will make full admission Discussed with case management and RN and patient I believe is scheduled to go for procedure with interventional radiology later today and possibly Dr. Stephen 07-07 HAD EMBOLIZATION OF UTERINE ARTERIES BY IR YESTERDAY SEEN BY [facility] SEEN BY RADIATION ONCOLOGY WILL FEED PATIENT PAIN CONTROL TO PO MEDS ADMIT TRANSFER TO ONCOLOGY FLOOR FOR RADIATION TODAY DW RN AND PT AND FAMILY AND CM Physical Exam Vital signs: Vital Signs 07/06/18 17:00 07/06/18 17:25 07/06/18 17:45 Temperature 98.4 F Pulse Rate 83 81 78 Respiratory Rate 16 20 20 Blood Pressure 124/70 138/70 153/67 H Pulse Oximetry 93 L 98 98 07/06/18 18:00 07/06/18 18:30 07/06/18 19:00 Temperature Pulse Rate 77 85 80 Respiratory Rate 20 20 20 Blood Pressure 173/92 H 163/77 H 163/77 H Pulse Oximetry 98 98 97 07/06/18 20:00 07/06/18 23:27 07/07/18 04:00 Temperature 98.4 F 98.5 F 98.6 F Pulse Rate 99 H 100 H 95 H Respiratory Rate 20 18 18 Blood Pressure 187/89 H 159/85 H 170/85 H Pulse Oximetry 98 94 L 97 07/07/18 07:56 Temperature 98.7 F Pulse Rate 91 H Respiratory Rate 16 Blood Pressure 158/78 H Pulse Oximetry 96 Intake & Output 07/06/18 07/07/18 07/07/18 18:59 06:59 18:59 Intake Total 1000 / 1000 Balance 1000 / 1000 Intake: IV 1000 / 1000 NS Inj 1,000 ML @ 100 mls/hr IV 1000 / 1000 .CONT .Q10H CHRISTIE Rx#:[id number] Other: # Voids 1 Date of Last Bowel Movement 07/06/18 # Bowel Movements 1 Narrative: GENERAL: Patient sitting up in bed. She is alert and oriented 4. SKIN: Warm and dry. HEAD: Atraumatic. Normocephalic. EYES: Pupils equal and round. No scleral icterus. No injection or drainage. EOMI ENT: No nasal bleeding or discharge. Mucous membranes pink and moist. Tongue is midline NECK: Trachea midline. No JVD. Supple CARDIOVASCULAR: Regular rate and rhythm. S1-S2 no S3 or S4 RESPIRATORY: No accessory muscle use. Clear to auscultation. Breath sounds equal bilaterally. GASTROINTESTINAL: Abdomen soft, non-tender, nondistended. Hepatic and splenic margins not palpable. MUSCULOSKELETAL: Extremities without clubbing, cyanosis, or edema. No obvious deformities. NEUROLOGICAL: Awake and alert. No obvious cranial nerve deficits. Motor grossly within normal limits. Five out of 5 muscle strength in the arms and legs. Normal speech. PSYCHIATRIC: Appropriate mood and affect; insight and judgment normal. Results - Labs CBC & Chem 7: 07/07/18 05:06 07/07/18 05:06 Laboratory Results - last 24 hr 07/06/18 07/06/18 07/06/18 04:15 04:15 04:15 WBC RBC Hgb Hct MCV MCH MCHC RDW Plt Count MPV Neut % (Auto) Lymph % (Auto) Mchenry % (Auto) Eos % (Auto) Baso % (Auto) Neut # (Auto) Lymph # (Auto) Mchenry # (Auto) Eos # (Auto) Baso # (Auto) WBC Differential Differential Comment PT INR Sodium Potassium Chloride Carbon Dioxide Anion Gap BUN Creatinine Estimated GFR Random Glucose Hemoglobin A1c 4.4 Calcium Phosphorus Magnesium Total Bilirubin AST ALT Alkaline Phosphatase Total Protein Albumin TSH 1.270 Free T4 1.08 07/06/18 07/07/18 07/07/18 23:11 05:06 05:06 WBC 5.5 RBC 3.24 L Hgb 8.6 L 8.1 L Hct 26.2 L MCV 81.1 MCH 25.0 L MCHC 30.9 L RDW 17.7 H Plt Count 353 MPV 8.2 Neut % (Auto) 76.2 H Lymph % (Auto) 17.3 Mchenry % (Auto) 5.6 Eos % (Auto) 0.2 Baso % (Auto) 0.7 Neut # (Auto) 4.2 Lymph # (Auto) 1.0 Mchenry # (Auto) 0.3 Eos # (Auto) 0.0 Baso # (Auto) 0.0 WBC Differential . Differential Comment Auto diff final PT 12.7 H INR 1.3 Sodium Potassium Chloride Carbon Dioxide Anion Gap BUN Creatinine Estimated GFR Random Glucose Hemoglobin A1c Calcium Phosphorus Magnesium Total Bilirubin AST ALT Alkaline Phosphatase Total Protein Albumin TSH Free T4 07/07/18 05:06 WBC RBC Hgb Hct MCV MCH MCHC RDW Plt Count MPV Neut % (Auto) Lymph % (Auto) Mchenry % (Auto) Eos % (Auto) Baso % (Auto) Neut # (Auto) Lymph # (Auto) Mchenry # (Auto) Eos # (Auto) Baso # (Auto) WBC Differential Differential Comment PT INR Sodium 144 Potassium 3.6 Chloride 109 H Carbon Dioxide 25.9 Anion Gap 9 BUN 4 L Creatinine 0.52 Estimated GFR Greater than 89 Random Glucose 100 Hemoglobin A1c Calcium 8.7 Phosphorus 4.4 Magnesium 2.1 Total Bilirubin 0.3 AST 17 ALT 23 Alkaline Phosphatase 89 Total Protein 6.4 Albumin 3.4 TSH Free T4 - Imaging Impressions Embolization 07/06/18 00:00 CONCLUSION: 1. Angiogram confirms a large hypervascular uterine mass with excellent angiographic result following particle embolization of the uterine arteries. Abdomen/Pelvis CT 07/07/18 00:00 CONCLUSION: 1. Markedly enlarged and heterogeneous uterus, with multiple discrete hyperdense regions, as detailed above. Findings are concerning for gynecologic malignancy. 2. Small region of low density in the left lateral pelvis, just lateral to the psoas muscle, which may represent focal layering fluid. 3. Mild nodularity of the left adrenal gland. 4. There is evidence of metastatic disease to the lungs. Please refer to separate report from today's chest CT for further details. Chest CT 07/07/18 00:00 CONCLUSION: 1. Multiple bilateral pulmonary nodules consistent with metastatic disease. - Procedures Michel Manriquez IR occlussion trancatheter Signed EXAM DATE: 07/06/2018 7:28 PM EDT AGE/SEX: 58 years / Female INDICATIONS: Patient presents with history of Endometriosis in need of bilateral Uterine artery embolization. CLINICAL DATA: This is the patient's initial encounter. Patient reports that signs and symptoms have been present for 1 day and indicates a pain score of 0/ 10. MEDICAL/SURGICAL HISTORY: . Fibroids, Endometriosis, Asthma, Carcinoma in situ of Cervix Uteri, Tonsillectomy. Dilation and curettage. COMPARISON: No prior exams available for comparison. FLUORO TIME (min): 10.1 IMAGE SERIES: 9 ACCESS SITE: Left radial artery SEDATION TIME (min): 40 CONTRAST (cc): 150 Visipaque (iodixanol) MEDICATION(S): 2.5 mg midazolam (Versed) IV 125 mcg fentanyl (Sublimaze) IV 200 mcg Nitroglycerine IA 2 mg Verapamil IA DEVICE(S): Bilateral uterine artery PVA 355-500 Microns . . PROCEDURE : 1. Ultrasound-guided puncture of the left radial artery 2. Conscious sedation with continuous EKG and Oximetry monitoring. 3. Pelvic angiogram 4. Selective catheter placement in the right internal iliac artery with selective angiography 5. Selective catheter placement in the right uterine artery with selective angiography 6. Embolization of the right uterine artery with PVA particles 7. Selective catheter placement in the left internal iliac artery with selective angiography 8. Selective catheter placement in the left uterine artery with selective angiography 9. Embolization of the left uterine artery with PVA particles The risks, benefits and alternatives to the procedure were explained and verbal and written consent was obtained. The site was prepped in sterile fashion. Full sterile technique was used, including cap, mask, sterile gloves and gown and a large sterile sheet. Hand hygiene and 2% chlorhexidine and/or betadine/ alcohol prep was utilized per protocol for cutaneous antisepsis. Sterile gel and sterile probe cover were utilized for ultrasound guidance. The skin and subcutaneous tissues were infiltrated with local anesthetic solution. Patient passed about both test prior to the procedure. Left radial artery was accessed with a micropuncture needle under direct ultrasound guidance and subsequently a slim 5 Georgian sheath was placed. 5 Georgian Najera catheter was then advanced into the distal bowel aorta and pelvic angiography was performed. Catheter was then advanced into the right internal iliac artery and angiography was performed. Catheter was subsequently advanced into the right uterine artery and angiography was performed confirming position. Right uterine artery was subsequently embolized with PVA particles to near stasis. Catheter was then repositioned into the left internal iliac artery and angiography was performed. Catheter was then advanced into the left uterine artery and angiography performed confirming position. Left uterine artery was subsequent MRIs with PVA particles to near stasis. Final pelvic angiogram demonstrated no additional significant uterine arterial supply or abnormal enhancement. Wires and catheters were then removed. Radial compression device was then applied the left radial artery puncture site. The patient tolerated the procedure well and there were no complications. Conscious sedation was performed with the prescribed dosages and duration as above in the presence of an independent trained radiology nurse to assist in the monitoring of the patient. EKG and oximetry remained stable throughout the procedure. FINDINGS: Very large uterine mass with significant increased vascularity. Excellent angiographic result following particle embolization of the uterine artery. CONCLUSION: 1. Angiogram confirms a large hypervascular uterine mass with excellent angiographic result following particle embolization of the uterine arteries. Electronically signed by: Armando Manning MD 07/07/2018 9:18 AM EDT Assessment and Plan - Plan Acute vaginal bleeding Anemia -Hemoglobin 10 Consult gynecology/oncology. Trend hemoglobin. 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 Recent biopsy on 06/22 at [facility]. Will consult gynecology/oncology. Consult Dr. Stephen of [facility] We will make a full admission DVT prophylaxis with SCDs and GARRETT hose GI prophylaxis with Pepcid Code Status: FULL CODE Discussed Condition With: RN AND PT AND CM AND FAMILY Discharge Planning: After clearance by [facility] oncology and interventional radiology and radiation oncology
[2018-07-07] MEDS ORDERED: HYDROmorphone PF Inj 2 MG/ML Vial IV.PUSH PRN ×3 (13:00)
[2018-07-07] MEDS ORDERED: Acetaminophen 325 MG Tablet PO ONE (14:24)
--- NOTE | 2018-07-07 14:51 | MB ---
cc: Thuy Stephen MD,Toño Bueno,Tonny Gutierrez MD, DO DATE: 07/07/2018 HISTORY OF PRESENT ILLNESS: I had the opportunity to meet again with Michel Manriquez. This time I had the opportunity to meet her daughter and her significant other. I explained the reason for [facility] consultation and I summarized the findings in her case today and the steps were taken and reviewed the plan of care. I confirmed that she is doing well after successful bilateral uterine artery embolization yesterday. She has had minimal cramp-like pain. She is also started her fractions of radiation therapy, which thus far she has tolerated well and she has the plan of care with treatment scheduled outlined by Dr. James and his colleagues. 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 In the abdomen there is very large mass. There seems to be on exam and imaging, the possibility of tumor infiltrating through the uterus and lower uterine segment, although it is a little bit difficult to delineate with certainty as the uterus is quite large and fixed in position. It is also reiterated that there are multiple pulmonary nodules biopsy of which had shown metastatic sarcoma. I explained why treatment is focused on the pelvis at the present time in an effort to reduce her risk of hemorrhage and to prevent ureteral obstruction and to help reduce pain and I not certain as to whether or not this will ever be amenable to surgical resection. Accordingly, we recommend and the uterine artery embolization, which was done yesterday and the initiation of radiation therapy which was also initiated yesterday and her and her family seem grateful for the care provided and the expeditious nature in which these steps were taken. She is anxious to go home. She is feeling much better. I cautioned her that her hemoglobin is down to 8. I think it would be reasonable to consider blood transfusion as she has little reserve. I explained that the embolization and radiation will significantly reduce the bleeding, but it is no guarantee that it will completely stop the bleeding and with such a large tumor, she is still at risk of bleeding. Accordingly, I think it would be medically in her favor to consider transfusion of 2 units of packed red blood cells to allow hospital personnel to watch her for another 24 hours to ensure that she is stable overnight and if she is doing well, from my standpoint, she would be able to be discharged tomorrow as long as that is if her hospitalist care team are in agreement. I have given her our office phone number and asked her to call to set up appointment to come back to see me sometime in the next few weeks. She understands that she will be getting radiation treatment in the [facility] and my office is just one floor above the office of Dr. James, and we can see her at any time for followup discussion and ongoing assessment. Discussion ensued. Questions were answered to the best of my capacity. They expressed good understanding and agreed with this plan. MD GANESH Armstrong/frank , 02:31 PM , 02:41 PM
[2018-07-08] MEDS: Sod Chloride 0.9% Inj 1,000 ML IV.CONT SCH ×2 (02:06→05:17)
[2018-07-08] MEDS ORDERED: Acetaminophen 325 MG Tablet PO PRN (05:39)
[2018-07-08 06:12] LABS: Baso % (Auto) 0.4 % (0.0-2.0); Eos % (Auto) 0.4 % (0.0-4.0); Hemoglobin 10.4 gm/dL (11.6-15.3); Lymph # (Auto) 0.5 th/mm3 (1.0-4.8); Lymph % (Auto) 5.6 % (9.0-44.0); Mean Corpuscular HGB Conc 32.5 % (32.0-36.0); Mean Corpuscular Hemoglobin 26.9 pg (27.0-34.0); Mean Corpuscular Volume 82.7 fL (80.0-100.0); Mean Platelet Volume 8.9 fL (7.0-11.0); Mono # (Auto) 0.6 th/mm3 (0.0-0.9); Mono % (Auto) 6.8 % (0.0-8.0); Neut # (Auto) 7.8 th/mm3 (1.8-7.7); Neut % (Auto) 86.8 % (16.0-70.0); Platelet Count 299 th/mm3 (150-450); Red Blood Count 3.86 mil/mm3 (4.00-5.30); Red Cell Distribution Width 17.2 % (11.6-17.2); White Blood Count 8.9 th/mm3 (4.0-11.0)
[2018-07-08 06:14] LABS: INR 1.3 Ratio; Prothrombin Time 13.6 sec (9.8-11.6)
[2018-07-08 06:48] LABS: Albumin 3.2 g/dL (3.4-5.0); Anion Gap 12 meq/L (5-15); Aspartate Aminotransferase 29 U/L (15-37); Calcium 8.2 mg/dL (8.5-10.1); Carbon Dioxide 27.2 meq/L (21.0-32.0); Chloride 103 meq/L (98-107); Glomerular Filtration Rate Greater Than 89 mL/min (>89); Glucose,Random 86 mg/dL (74-106); Potassium 3.1 meq/L (3.5-5.1); Sodium 142 meq/L (136-145)
[2018-07-08 06:56] LABS: Alanine Aminotransferase 20 U/L (10-53); Alkaline Phosphatase 82 U/L (45-117); Blood Urea Nitrogen 5 mg/dL (7-18); Phosphorus 3.7 mg/dL (2.5-4.9); Total Protein 6.3 g/dL (6.4-8.2)
[2018-07-08 08:47] VITALS: TEMP 98.1; O2SAT 95
[2018-07-08] MEDS: Famotidine PF Inj 20 MG/2 ML Vial IV.PUSH SCH (09:05)
[2018-07-08] MEDS: Multivitamin/Minerals Therapeutic Tablet PO SCH (09:05)
--- NOTE | 2018-07-08 10:15 | P.PN ---
Subjective Interval history: Patient status post embolization of uterine artery with transfusion of 2 units packed red blood cell. H&H stable. Denies any acute event overnight. BP labile. Physical Exam Vital signs: Vital Signs 07/07/18 11:50 07/07/18 13:30 07/07/18 15:50 Temperature 98.8 F 98.2 F Pulse Rate 93 H 99 H Respiratory Rate 18 18 Blood Pressure 186/91 H 169/80 H Pulse Oximetry 98 100 07/07/18 16:00 07/07/18 18:20 07/07/18 19:15 Temperature 99 F Pulse Rate 100 H 104 H Respiratory Rate 18 18 18 Blood Pressure 198/91 H 169/77 H Pulse Oximetry 07/07/18 20:00 07/07/18 20:12 07/07/18 22:57 Temperature 98.8 F 99.1 F Pulse Rate 100 H 95 H 87 Respiratory Rate 18 18 Blood Pressure 172/81 H 149/74 H Pulse Oximetry 99 97 07/08/18 00:00 07/08/18 00:07 07/08/18 04:00 Temperature 99.8 F H 100.8 F H Pulse Rate 84 89 104 H Respiratory Rate 18 Blood Pressure 144/66 H 177/81 H Pulse Oximetry 97 07/08/18 07:00 07/08/18 08:44 Temperature 98.1 F Pulse Rate 103 H 101 H Respiratory Rate 18 Blood Pressure 174/82 H Pulse Oximetry 95 Intake & Output 07/07/18 07/08/18 07/08/18 18:59 06:59 18:59 Intake Total 1000 / 1000 774 / 774 Output Total 200 / 200 Balance 1000 / 1000 574 / 574 Weight 79.8 kg Intake: IV 1000 / 1000 54 / 54 NS Inj 1,000 ML @ 100 mls/hr IV 1000 / 1000 .CONT .Q10H CHRISTIE Rx#:[id number] Zofran Inj 8 MG In D5W Inj 50 54 / 54 ML @ 216 mls/hr IV.SIG Q6H PRN Rx#:[id number] Oral 720 / 720 Intake (Blood Product) Amt 0 / 0 0 / 0 Rbc As-3 Leukoreduced Unit 0 / 0 0 / 0 [id number] Rbc As-3 Leukoreduced Unit 0 / 0 [id number] Output: Urine 200 / 200 Other: # Voids 2 # Incontinent Voids 3 Date of Last Bowel Movement 07/06/18 07/06/18 Narrative: GENERAL: NAD SKIN: Warm and dry. HEAD: Atraumatic. Normocephalic. EYES: Pupils equal and round. No scleral icterus. No injection or drainage. EOMI ENT: No nasal bleeding or discharge. Mucous membranes pink and moist. Tongue is midline NECK: Trachea midline. No JVD. Supple CARDIOVASCULAR: Regular rate and rhythm. S1-S2 no S3 or S4 RESPIRATORY: No accessory muscle use. Clear to auscultation. Breath sounds equal bilaterally. GASTROINTESTINAL: Abdomen soft, non-tender, nondistended. Hepatic and splenic margins not palpable. MUSCULOSKELETAL: Extremities without clubbing, cyanosis, or edema. No obvious deformities. NEUROLOGICAL: Awake and alert. No obvious cranial nerve deficits. Motor grossly within normal limits. Five out of 5 muscle strength in the arms and legs. Normal speech. PSYCHIATRIC: Appropriate mood and affect; insight and judgment normal. Results - Labs CBC & Chem 7: 07/08/18 05:04 07/08/18 05:04 Laboratory Results - last 24 hr 07/07/18 07/08/18 07/08/18 15:06 05:04 05:04 WBC 8.9 D RBC 3.86 L Hgb 10.4 L D Hct 32.0 L MCV 82.7 MCH 26.9 L MCHC 32.5 RDW 17.2 Plt Count 299 MPV 8.9 Neut % (Auto) 86.8 H Lymph % (Auto) 5.6 L [place] % (Auto) 6.8 Eos % (Auto) 0.4 Baso % (Auto) 0.4 Neut # (Auto) 7.8 H Lymph # (Auto) 0.5 L [place] # (Auto) 0.6 Eos # (Auto) 0.0 Baso # (Auto) 0.0 WBC Differential . Differential Comment Auto diff final PT 13.6 H INR 1.3 Sodium Potassium Chloride Carbon Dioxide Anion Gap BUN Creatinine Estimated GFR Random Glucose Calcium Phosphorus Magnesium Total Bilirubin AST ALT Alkaline Phosphatase Total Protein Albumin MTS Gel Crossmatch See Detail Bld Prod Order Comment 07/08/18 05:04 WBC RBC Hgb Hct MCV MCH MCHC RDW Plt Count MPV Neut % (Auto) Lymph % (Auto) [place] % (Auto) Eos % (Auto) Baso % (Auto) Neut # (Auto) Lymph # (Auto) [place] # (Auto) Eos # (Auto) Baso # (Auto) WBC Differential Differential Comment PT INR Sodium 142 Potassium 3.1 L Chloride 103 Carbon Dioxide 27.2 Anion Gap 12 BUN 5 L Creatinine 0.59 Estimated GFR Greater than 89 Random Glucose 86 Calcium 8.2 L Phosphorus 3.7 Magnesium 2.0 Total Bilirubin 0.9 AST 29 ALT 20 Alkaline Phosphatase 82 Total Protein 6.3 L Albumin 3.2 L MTS Gel Crossmatch Bld Prod Order Comment - Procedures Michel Manriquez IR occlussion trancatheter Signed EXAM DATE: 07/06/2018 7:28 PM EDT AGE/SEX: 58 years / Female INDICATIONS: Patient presents with history of Endometriosis in need of bilateral Uterine artery embolization. CLINICAL DATA: This is the patient's initial encounter. Patient reports that signs and symptoms have been present for 1 day and indicates a pain score of 0/ 10. MEDICAL/SURGICAL HISTORY: . Fibroids, Endometriosis, Asthma, Carcinoma in situ of Cervix Uteri, Tonsillectomy. Dilation and curettage. COMPARISON: No prior exams available for comparison. FLUORO TIME (min): 10.1 IMAGE SERIES: 9 ACCESS SITE: Left radial artery SEDATION TIME (min): 40 CONTRAST (cc): 150 Visipaque (iodixanol) MEDICATION(S): 2.5 mg midazolam (Versed) IV 125 mcg fentanyl (Sublimaze) IV 200 mcg Nitroglycerine IA 2 mg Verapamil IA DEVICE(S): Bilateral uterine artery PVA 355-500 Microns . . PROCEDURE : 1. Ultrasound-guided puncture of the left radial artery 2. Conscious sedation with continuous EKG and Oximetry monitoring. 3. Pelvic angiogram 4. Selective catheter placement in the right internal iliac artery with selective angiography 5. Selective catheter placement in the right uterine artery with selective angiography 6. Embolization of the right uterine artery with PVA particles 7. Selective catheter placement in the left internal iliac artery with selective angiography 8. Selective catheter placement in the left uterine artery with selective angiography 9. Embolization of the left uterine artery with PVA particles The risks, benefits and alternatives to the procedure were explained and verbal and written consent was obtained. The site was prepped in sterile fashion. Full sterile technique was used, including cap, mask, sterile gloves and gown and a large sterile sheet. Hand hygiene and 2% chlorhexidine and/or betadine/ alcohol prep was utilized per protocol for cutaneous antisepsis. Sterile gel and sterile probe cover were utilized for ultrasound guidance. The skin and subcutaneous tissues were infiltrated with local anesthetic solution. Patient passed about both test prior to the procedure. Left radial artery was accessed with a micropuncture needle under direct ultrasound guidance and subsequently a slim 5 Prydeinig sheath was placed. 5 Prydeinig Najera catheter was then advanced into the distal bowel aorta and pelvic angiography was performed. Catheter was then advanced into the right internal iliac artery and angiography was performed. Catheter was subsequently advanced into the right uterine artery and angiography was performed confirming position. Right uterine artery was subsequently embolized with PVA particles to near stasis. Catheter was then repositioned into the left internal iliac artery and angiography was performed. Catheter was then advanced into the left uterine artery and angiography performed confirming position. Left uterine artery was subsequent MRIs with PVA particles to near stasis. Final pelvic angiogram demonstrated no additional significant uterine arterial supply or abnormal enhancement. Wires and catheters were then removed. Radial compression device was then applied the left radial artery puncture site. The patient tolerated the procedure well and there were no complications. Conscious sedation was performed with the prescribed dosages and duration as above in the presence of an independent trained radiology nurse to assist in the monitoring of the patient. EKG and oximetry remained stable throughout the procedure. FINDINGS: Very large uterine mass with significant increased vascularity. Excellent angiographic result following particle embolization of the uterine artery. CONCLUSION: 1. Angiogram confirms a large hypervascular uterine mass with excellent angiographic result following particle embolization of the uterine arteries. 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 Recent biopsy on 06/22 at [facility]. 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
--- NOTE | 2018-07-08 10:18 | P.DS ---
Date of admission: 07/06/18 14:32 Primary care physician: Cyrus Kay MD Anticipated date of discharge: 07/08/18 Brief History from admission: 58-year-old female who started with vaginal bleeding in October 2017, subsequently developed severe anemia with hemoglobin down 4.0 earlier this month transfused at [facility], underwent D&C with resolution of bleeding, as well as lung nodule biopsy showing metastatic leiomyosarcoma to lung. Patient presents due to heavy vaginal bleeding which started earlier on with multiple clots. She says she is very scared of having anemia leg before. She reports chronic suprapubic cramping which is unchanged. She denies any fevers, chills, chest pain, shortness breath, nausea, vomiting. She does report uncertain amount of weight loss over the past 2 months. 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 Recent biopsy on 06/22 at [facility]. Gynecologic oncology was consulted DVT prophylaxis with SCDs and GARRETT rivera GI prophylaxis with Pepcid - Time Spent with Patient Total time spent providing and/or coordinating discharge services: Less than 30 minutes - Quality: VTE Deep Vein Thrombosis/Pulmonary Embolism Present on Admission: No Exam Vital signs: Vital Signs 07/07/18 11:50 07/07/18 13:30 07/07/18 15:50 Temperature 98.8 F 98.2 F Pulse Rate 93 H 99 H Respiratory Rate 18 18 Blood Pressure 186/91 H 169/80 H Pulse Oximetry 98 100 07/07/18 16:00 07/07/18 18:20 07/07/18 19:15 Temperature 99 F Pulse Rate 100 H 104 H Respiratory Rate 18 18 18 Blood Pressure 198/91 H 169/77 H Pulse Oximetry 07/07/18 20:00 07/07/18 20:12 07/07/18 22:57 Temperature 98.8 F 99.1 F Pulse Rate 100 H 95 H 87 Respiratory Rate 18 18 Blood Pressure 172/81 H 149/74 H Pulse Oximetry 99 97 07/08/18 00:00 07/08/18 00:07 07/08/18 04:00 Temperature 99.8 F H 100.8 F H Pulse Rate 84 89 104 H Respiratory Rate 18 Blood Pressure 144/66 H 177/81 H Pulse Oximetry 97 07/08/18 07:00 07/08/18 08:44 Temperature 98.1 F Pulse Rate 103 H 101 H Respiratory Rate 18 Blood Pressure 174/82 H Pulse Oximetry 95 Intake & Output 07/07/18 07/08/18 07/08/18 18:59 06:59 18:59 Intake Total 1000 / 1000 774 / 774 Output Total 200 / 200 Balance 1000 / 1000 574 / 574 Weight 79.8 kg Intake: IV 1000 / 1000 54 / 54 NS Inj 1,000 ML @ 100 mls/hr IV 1000 / 1000 .CONT .Q10H CHRISTIE Rx#:[id number] Zofran Inj 8 MG In D5W Inj 50 54 / 54 ML @ 216 mls/hr IV.SIG Q6H PRN Rx#:[id number] Oral 720 / 720 Intake (Blood Product) Amt 0 / 0 0 / 0 Rbc As-3 Leukoreduced Unit 0 / 0 0 / 0 [id number] Rbc As-3 Leukoreduced Unit 0 / 0 [id number] Output: Urine 200 / 200 Other: # Voids 2 # Incontinent Voids 3 Date of Last Bowel Movement 07/06/18 07/06/18 Narrative: GENERAL: NAD SKIN: Warm and dry. HEAD: Normocephalic. EYES: No scleral icterus. No injection or drainage. NECK: Supple, trachea midline. No JVD or lymphadenopathy. CARDIOVASCULAR: Regular rate and rhythm without murmurs, gallops, or rubs. RESPIRATORY: Breath sounds equal bilaterally. No accessory muscle use. GASTROINTESTINAL: Abdomen soft, non-tender, nondistended. MUSCULOSKELETAL: No cyanosis, or edema. BACK: Nontender without obvious deformity. No CVA tenderness. Results Procedures completed during hospitalization: Michel Manriquez occlussion trancatheter Signed EXAM DATE: 07/06/2018 7:28 PM EDT AGE/SEX: 58 years / Female INDICATIONS: Patient presents with history of Endometriosis in need of bilateral Uterine artery embolization. CLINICAL DATA: This is the patient's initial encounter. Patient reports that signs and symptoms have been present for 1 day and indicates a pain score of 0/ 10. MEDICAL/SURGICAL HISTORY: . Fibroids, Endometriosis, Asthma, Carcinoma in situ of Cervix Uteri, Tonsillectomy. Dilation and curettage. COMPARISON: No prior exams available for comparison. FLUORO TIME (min): 10.1 IMAGE SERIES: 9 ACCESS SITE: Left radial artery SEDATION TIME (min): 40 CONTRAST (cc): 150 Visipaque (iodixanol) MEDICATION(S): 2.5 mg midazolam (Versed) IV 125 mcg fentanyl (Sublimaze) IV 200 mcg Nitroglycerine IA 2 mg Verapamil IA DEVICE(S): Bilateral uterine artery PVA 355-500 Microns . . PROCEDURE : 1. Ultrasound-guided puncture of the left radial artery 2. Conscious sedation with continuous EKG and Oximetry monitoring. 3. Pelvic angiogram 4. Selective catheter placement in the right internal iliac artery with selective angiography 5. Selective catheter placement in the right uterine artery with selective angiography 6. Embolization of the right uterine artery with PVA particles 7. Selective catheter placement in the left internal iliac artery with selective angiography 8. Selective catheter placement in the left uterine artery with selective angiography 9. Embolization of the left uterine artery with PVA particles The risks, benefits and alternatives to the procedure were explained and verbal and written consent was obtained. The site was prepped in sterile fashion. Full sterile technique was used, including cap, mask, sterile gloves and gown and a large sterile sheet. Hand hygiene and 2% chlorhexidine and/or betadine/ alcohol prep was utilized per protocol for cutaneous antisepsis. Sterile gel and sterile probe cover were utilized for ultrasound guidance. The skin and subcutaneous tissues were infiltrated with local anesthetic solution. Patient passed about both test prior to the procedure. Left radial artery was accessed with a micropuncture needle under direct ultrasound guidance and subsequently a slim 5 Upper Sorbian sheath was placed. 5 Upper Sorbian Najera catheter was then advanced into the distal bowel aorta and pelvic angiography was performed. Catheter was then advanced into the right internal iliac artery and angiography was performed. Catheter was subsequently advanced into the right uterine artery and angiography was performed confirming position. Right uterine artery was subsequently embolized with PVA particles to near stasis. Catheter was then repositioned into the left internal iliac artery and angiography was performed. Catheter was then advanced into the left uterine artery and angiography performed confirming position. Left uterine artery was subsequent MRIs with PVA particles to near stasis. Final pelvic angiogram demonstrated no additional significant uterine arterial supply or abnormal enhancement. Wires and catheters were then removed. Radial compression device was then applied the left radial artery puncture site. The patient tolerated the procedure well and there were no complications. Conscious sedation was performed with the prescribed dosages and duration as above in the presence of an independent trained radiology nurse to assist in the monitoring of the patient. EKG and oximetry remained stable throughout the procedure. FINDINGS: Very large uterine mass with significant increased vascularity. Excellent angiographic result following particle embolization of the uterine artery. CONCLUSION: 1. Angiogram confirms a large hypervascular uterine mass with excellent angiographic result following particle embolization of the uterine arteries. Electronically signed by: Armando Manning MD 07/07/2018 9:18 AM EDT Labs on day of discharge: Labs from last 24 hours 07/08/18 07/08/18 07/08/18 05:04 05:04 05:04 WBC 8.9 D RBC 3.86 L Hgb 10.4 L D Hct 32.0 L MCV 82.7 MCH 26.9 L MCHC 32.5 RDW 17.2 Plt Count 299 MPV 8.9 Neut % (Auto) 86.8 H Lymph % (Auto) 5.6 L [place] % (Auto) 6.8 Eos % (Auto) 0.4 Baso % (Auto) 0.4 Neut # (Auto) 7.8 H Lymph # (Auto) 0.5 L [place] # (Auto) 0.6 Eos # (Auto) 0.0 Baso # (Auto) 0.0 WBC Differential . Differential Comment Auto diff final PT 13.6 H INR 1.3 Sodium 142 Potassium 3.1 L Chloride 103 Carbon Dioxide 27.2 Anion Gap 12 BUN 5 L Creatinine 0.59 Estimated GFR Greater than 89 Random Glucose 86 Calcium 8.2 L Phosphorus 3.7 Magnesium 2.0 Total Bilirubin 0.9 AST 29 ALT 20 Alkaline Phosphatase 82 Total Protein 6.3 L Albumin 3.2 L MTS Gel Crossmatch Bld Prod Order Comment 07/07/18 15:06 WBC RBC Hgb Hct MCV MCH MCHC RDW Plt Count MPV Neut % (Auto) Lymph % (Auto) [place] % (Auto) Eos % (Auto) Baso % (Auto) Neut # (Auto) Lymph # (Auto) [place] # (Auto) Eos # (Auto) Baso # (Auto) WBC Differential Differential Comment PT INR Sodium Potassium Chloride Carbon Dioxide Anion Gap BUN Creatinine Estimated GFR Random Glucose Calcium Phosphorus Magnesium Total Bilirubin AST ALT Alkaline Phosphatase Total Protein Albumin MTS Gel Crossmatch See Detail Bld Prod Order Comment - Impressions ITS Impressions Pelvis Ultrasound 07/05/18 22:12 CONCLUSION: 1. Large heterogeneous mass of the uterus as described with nonvisualization of the endometrial stripe. Fibroid and endometrial mass or both in the differential. 2. Neither ovary clearly visualized but no evidence of an adnexal mass. There is no free fluid. Patient refused transvaginal exam. Embolization 07/06/18 00:00 CONCLUSION: 1. Angiogram confirms a large hypervascular uterine mass with excellent angiographic result following particle embolization of the uterine arteries. Abdomen/Pelvis CT 07/07/18 00:00 CONCLUSION: 1. Markedly enlarged and heterogeneous uterus, with multiple discrete hyperdense regions, as detailed above. Findings are concerning for gynecologic malignancy. 2. Small region of low density in the left lateral pelvis, just lateral to the psoas muscle, which may represent focal layering fluid. 3. Mild nodularity of the left adrenal gland. 4. There is evidence of metastatic disease to the lungs. Please refer to separate report from today's chest CT for further details. Chest CT 07/07/18 00:00 CONCLUSION: 1. Multiple bilateral pulmonary nodules consistent with metastatic disease. Discharge Plan - Discharge Disposition Patient Disposition: Discharge Home - Discharge Condition Condition: Good - Discharge Order Discharge Orders: Discharge Order (Routine); Ordered 07/08/18 Ordered By: Demetris Renteria - Physicians Team Primary Care Provider: Cyrus Kay Attending Provider: Demetris Renteria Other Providers: Toño Mesa MD ; Thuy Stephen MD
[2018-07-08 11:17] VITALS: BP 163/72; PULSE 81
== END 2018-07-08 12:06 | disposition home or self-care (01) ==
LOC: NEPE 20:56 → NEDA 20:56 → NEPFCDU 07-06 00:52 → HCIS 07-07 12:50 → HCIN 07-07 13:08
PROVIDERS: ADMIT Hospitalist; ATTEND Hospitalist